=== PATIENT | female | born 1930 | race African-American/Black ===

== ENCOUNTER 2017-04-19 22:42 | Inpatient (IN) | payer MEDICARE, BC ==
[~2017-04-19] VITALS: Ht 160 cm; Wt 87.1 kg
[2017-04-19] MEDS ORDERED: dilTIAZem HCl 25mg/5ml Inj IVP ONE (23:30)
[2017-04-20] VITALS (9 sets, daily range): BP systolic 103–139; BP diastolic 53–83
[2017-04-20 00:08] LABS: MEAN CORPUSCULAR HEMOGLOBIN 29.7 PG (27.0-31.0); MEAN CORPUSCULAR HGB CONC 30.9 G/DL (32.0-36.0); MEAN CORPUSCULAR VOLUME 96 FL (80-99); MEAN PLATELET VOLUME 9.9 FL (6.5-10.1); PLATELET COUNT 261 K/UL (150-450); RED BLOOD COUNT 3.93 M/UL (4.20-5.40); RED CELL DISTRIBUTION WIDTH 14.6 % (11.6-14.8); WHITE BLOOD COUNT 10.5 K/UL (4.8-10.8)
[2017-04-20 00:27] LABS: APPEARANCE,URINE SLIGHTLY CLOUDY; KETONES,URINE 1+ (NEGATIVE); LEUKOCYTE ESTERASE ,URINE 1+ (NEGATIVE); NITRITE,URINE NEGATIVE (NEGATIVE); PH,URINE 5 (4.5-8.0); PROTEIN,URINE 3+ (NEGATIVE); UROBILINOGEN,URINE 4 MG/DL (0.0-1.0)
[2017-04-20 00:31] LABS: ANION GAP 16 mmol/L (5-15); CALCIUM 9.5 MG/DL (8.5-10.1); CARBON DIOXIDE 24 MMOL/L (21-32); CHLORIDE 102 MMOL/L (98-107); CREATININE 2.1 MG/DL (0.55-1.30); POTASSIUM 4.3 MMOL/L (3.5-5.1); SODIUM 141 MMOL/L (136-145)
[2017-04-20 00:37] LABS: BAND NEUTROPHILS % (MANUAL) 0 % (0-8); BASOPHILS % (MANUAL) 0 % (0-2); EOSINOPHILS % (MANUAL) 0 % (0-3); LYMPHOCYTES % (MANUAL) 5 % (20-45); NEUTROPHILS % (MANUAL) 87 % (45-75); PLATELET ESTIMATE ADEQUATE; PLATELET MORPHOLOGY NORMAL; TOTAL CELLS COUNTED 100
[2017-04-20 00:42] LABS: AMORPHOUS SEDIMENT,UR MODERATE /LPF; BACTERIA,URINE OCCASIONAL /HPF; ICTOTEST NEGATIVE; RBC,URINE 0-2 /HPF (0 - 2); SQUAMOUS EPITHELIAL CELL,UR OCCASIONAL /LPF (NONE/OCC)
[2017-04-20] MEDS ORDERED: dilTIAZem HCl 25mg/5ml Inj IVP ONE ×4 (00:45→05:00)
[2017-04-20 00:46] LABS: ALANINE AMINOTRANSFERASE 36 U/L (12-78); ALBUMIN/GLOBULIN RATIO 0.7 (1.0-2.7); ASPARTATE AMINO TRANSFERASE 39 U/L (15-37); TOTAL PROTEIN 8.7 G/DL (6.4-8.2)
[2017-04-20 00:49] LABS: BILIRUBIN,DIRECT 1.2 MG/DL (0.0-0.3)
[2017-04-20] MEDS ORDERED: dilTIAZem HCl 50mg/10ml Inj IVP ONE (00:53)
[2017-04-20 00:59] LABS: INR 1.8 (0.9-1.1)
--- NOTE | 2017-04-20 01:27 | Emergency Room Report ---
History of Present Illness General Chief Complaint: General Complaint Source: Patient, Family Member Present Illness HPI This is an 86-year-old female with a history of atrial fibrillation on Elliquis. She also has a history of CHF on Lasix. She presents with joint weakness and palpitation. Patient was a poor historian. History is through the assisted note. History also from family member when they came in. Patient complaining of generalize weakness. No chest pain. Thought that she may have a panic attack as when her heart rate was fast. Denies any other complaint. Allergies: Coded Allergies: TRAMADOL (Verified Allergy, Unknown, 04/19/17) Patient History Past Medical History: see triage record, old chart reviewed Pertinent Family History: none Social History: Denies: smoking Last Menstrual Period: none Now: No Immunizations: other Reviewed Nursing Documentation: PMH: Agreed, PSxH: Agreed Nursing Documentation-PMH Hx Cardiac Problems: No - CHF Hx Hypertension: Yes Hx Diabetes: Yes Review of Systems Constitutional: Reports: weakness Eye: Denies: eye pain, blurred vision ENT: Denies: ear pain, nose congestion, throat swelling Respiratory: Denies: cough, shortness of breath Cardiovascular: Reports: palpitations, Denies: chest pain Gastrointestinal: Denies: abdominal pain, diarrhea, nausea, vomiting Musculoskeletal: Denies: back pain, joint pain Skin: Denies: rash Neurological: Denies: headache, numbness Endocrine: Denies: increased thirst, increased urine Hematologic/Lymphatic: Denies: easy bruising All Other Systems: negative except mentioned in HPI Physical Exam Vital Signs Date Time Temp Pulse Resp B/P (MAP) Pulse Ox O2 Delivery O2 Flow Rate FiO2 04/19/17 22:36 97.9 132 15 176/103 98 Nasal Cannula 2.0 vitals with high blood pressure Sp02 EP Interpretation: reviewed, normal General Appearance: well appearing, no apparent distress, alert Head: normocephalic, atraumatic Eyes: bilateral eye PERRL, bilateral eye EOMI ENT: hearing grossly normal, normal pharynx Neck: full range of motion, supple, no meningismus Respiratory: chest non-tender, lungs clear, normal breath sounds Cardiovascular #1: no murmur, tachycardia, irregularly irregular Gastrointestinal: normal bowel sounds, non tender, no mass, no organomegaly, no bruit, non-distended Musculoskeletal: back normal, gait/station normal, normal range of motion Psychiatric: mood/affect normal Skin: warm/dry Procedures Critical Care Time Critical Care Time Critical care is mandated in this patient who presented with chf from rapid afib. Patient require my urgent intervention to attenuate the risks of metabolic collapse which may lead to cardiovascular collapse and . Critical care time is 35 minutes excluding any reportable procedure. Critical care time included evaluation, multiple reevaluation, looking at old charts, interpreting laboratory and diagnostic data, discussing case with patient and family and consultants, and charting. Medical Decision Making Diagnostic Impression: Primary Impression: Rapid atrial fibrillation Additional Impressions: ARF (acute renal failure) Qualified Codes: N17.9 - Acute kidney failure, unspecified CHF exacerbation Qualified Codes: I50.9 - Heart failure, unspecified Proteinuria Qualified Codes: R80.9 - Proteinuria, unspecified ER Course Patient with rapid A. fib. This may have caused her in CHF exacerbation. Creatinine is elevated. Per Dr. Mathew, there was concern about possible C. difficile she she's been having diarrhea. Heart rate improved after Cardizem. Lasix given. Troponin is slightly elevated. This may be secondary to the man ischemia from tachycardia. No aspirin given because she's on Elliquis. Laboratory Tests Test 04/19/17 23:55 04/20/17 00:05 White Blood Count 10.5 K/UL (4.8-10.8) Red Blood Count 3.93 M/UL (4.20-5.40) L Hemoglobin 11.7 G/DL (12.0-16.0) L Hematocrit 37.8 % (37.0-47.0) Mean Corpuscular Volume 96 FL (80-99) Mean Corpuscular Hemoglobin 29.7 PG (27.0-31.0) Mean Corpuscular Hemoglobin Concent 30.9 G/DL (32.0-36.0) L Red Cell Distribution Width 14.6 % (11.6-14.8) Platelet Count 261 K/UL (150-450) Mean Platelet Volume 9.9 FL (6.5-10.1) Neutrophils (%) (Auto) % (45.0-75.0) Lymphocytes (%) (Auto) % (20.0-45.0) Monocytes (%) (Auto) % (1.0-10.0) Eosinophils (%) (Auto) % (0.0-3.0) Basophils (%) (Auto) % (0.0-2.0) Differential Total Cells Counted 100 Neutrophils % (Manual) 87 % (45-75) H Lymphocytes % (Manual) 5 % (20-45) L Monocytes % (Manual) 8 % (1-10) Eosinophils % (Manual) 0 % (0-3) Basophils % (Manual) 0 % (0-2) Band Neutrophils 0 % (0-8) Platelet Estimate Adequate Platelet Morphology Normal Prothrombin Time 19.0 SEC (9.30-11.50) H Prothromb Time International Ratio 1.8 (0.9-1.1) H Activated Partial Thromboplast Time 32 SEC (23-33) Sodium Level 141 MMOL/L (136-145) Potassium Level 4.3 MMOL/L (3.5-5.1) Chloride Level 102 MMOL/L (98-107) Carbon Dioxide Level 24 MMOL/L (21-32) Anion Gap 16 mmol/L (5-15) H Blood Urea Nitrogen 34 mg/dL (7-18) H Creatinine 2.1 MG/DL (0.55-1.30) H Estimat Glomerular Filtration Rate mL/min (>60) Glucose Level 144 MG/DL (74-106) H Calcium Level 9.5 MG/DL (8.5-10.1) Total Bilirubin 1.7 MG/DL (0.2-1.0) H Direct Bilirubin 1.2 MG/DL (0.0-0.3) H Aspartate Amino Transf (AST/SGOT) 39 U/L (15-37) H Alanine Aminotransferase (ALT/SGPT) 36 U/L (12-78) Alkaline Phosphatase 87 U/L (46-116) Total Creatine Kinase 58 U/L (26-308) Creatine Kinase MB 2.0 NG/ML (0.0-3.6) Creatine Kinase MB Relative Index 3.4 Troponin I 0.063 ng/mL (0.000-0.056) Pro-B-Type Natriuretic Peptide 25091 pg/mL (0-125) H Total Protein 8.7 G/DL (6.4-8.2) H Albumin 3.7 G/DL (3.4-5.0) Globulin 5.0 g/dL Albumin/Globulin Ratio 0.7 (1.0-2.7) L Urine Color [place] Urine Appearance Slightly cloudy Urine pH 5 (4.5-8.0) Urine Specific [place] 1.020 (1.005-1.035) Urine Protein 3+ (NEGATIVE) H Urine Glucose (UA) Negative (NEGATIVE) Urine Ketones 1+ (NEGATIVE) H Urine Occult Blood Negative (NEGATIVE) Urine Nitrite Negative (NEGATIVE) Urine Bilirubin 1+ (NEGATIVE) H Urine Ictotest Negative Urine Urobilinogen 4 MG/DL (0.0-1.0) H Urine Leukocyte Esterase 1+ (NEGATIVE) H Urine RBC 0-2 /HPF (0 - 2) Urine WBC 2-4 /HPF (0 - 2) Urine Squamous Epithelial Cells Occasional /LPF Urine Amorphous Sediment Moderate /LPF (NONE) H Urine Bacteria Occasional /HPF (NONE) Lab Results Impression labs with elevated troponin And BNP. EKG Diagnostic Results Rate: tachycardiac Rhythm: other - Rapid A. fib ST Segments: other - Nonspecific ST changes Rhythm Strip Diag. Results Rhythm Strip Time: 01:26 EP Interpretation: yes Rate: 100 Rhythm: no PVC's, no ectopy, other - A. fib Chest X-Ray Diagnostic Results Chest X-Ray Diagnostic Results : Chest X-Ray Ordered: Yes # of Views/Limited/Complete: 1 View Indication: Shortness of Breath EP Interpretation: Yes Interpretation: no consolidation, no effusion, no pneumothorax, other - Cardiomegaly Impression: No acute disease Electronically Signed by: Chiki Rice MD Last Vital Signs Date Time Temp Pulse Resp B/P (MAP) Pulse Ox O2 Delivery O2 Flow Rate FiO2 04/20/17 00:58 134 110/77 04/20/17 00:21 97.9 19 100 Nasal Cannula 2.0 Status: improved Disposition: ADMITTED INPATIENT Condition: Serious Referrals: HORACE MATHEW (PCP) CHIKI RICE M.D. Apr 20, 2017 01:27
[2017-04-20] MEDS ORDERED: ELIQUIS5 MG PO (01:33)
[2017-04-20] MEDS ORDERED: METFORMIN HCL500 M1 ORAL (01:33)
[2017-04-20] MEDS ORDERED: CARDIZEM CD120 MG ORAL (01:33)
[2017-04-20] MEDS ORDERED: FUROSEMIDE40 MG ORAL (01:34)
[2017-04-20] MEDS ORDERED: VENTOLIN HFA18 GM INH (01:42)
[2017-04-20] MEDS ORDERED: dilTIAZem HCl 60mg tab ORAL ONE (05:00)
[2017-04-20] MEDS ORDERED: dilTIAZem HCl 30mg tab ORAL ONE (05:00)
[2017-04-20 10:13] LABS: BASOPHILS % (AUTO) 0.7 % (0.0-2.0); EOSINOPHILS % (AUTO) 0.1 % (0.0-3.0); LYMPHOCYTES % (AUTO) 9.9 % (20.0-45.0); MEAN CORPUSCULAR HEMOGLOBIN 29.3 PG (27.0-31.0); MEAN CORPUSCULAR HGB CONC 30.6 G/DL (32.0-36.0); MEAN CORPUSCULAR VOLUME 96 FL (80-99); MEAN PLATELET VOLUME 8.5 FL (6.5-10.1); MONOCYTES % (AUTO) 9.8 % (1.0-10.0); NEUTROPHILS % (AUTO) 79.4 % (45.0-75.0); PLATELET COUNT 224 K/UL (150-450); RED BLOOD COUNT 3.71 M/UL (4.20-5.40); RED CELL DISTRIBUTION WIDTH 14.8 % (11.6-14.8); WHITE BLOOD COUNT 8.5 K/UL (4.8-10.8)
[2017-04-20 10:27] LABS: ANION GAP 13 mmol/L (5-15); CALCIUM 9.4 MG/DL (8.5-10.1); CARBON DIOXIDE 25 MMOL/L (21-32); CHLORIDE 104 MMOL/L (98-107); CREATININE 2.2 MG/DL (0.55-1.30); POTASSIUM 4.8 MMOL/L (3.5-5.1); SODIUM 142 MMOL/L (136-145)
[2017-04-20] MEDS ORDERED: Digoxin 0.5mg/2ml Inj IVP ONE ×2 (12:45→23:00)
[2017-04-20] MEDS ORDERED: Metoprolol 5mg/5ml Inj IVPB ONE (13:00)
--- NOTE | 2017-04-20 13:03 | Geriatric Progress Note ---
Subjective Interval Events ?HP dicated impression acute renal failure abdomen pain r/o ce diff acute congestine heart faiklure diasltolic heart failure monirtor closely Geriatric Geriatric Last 24 Hour Vital Signs Date Time Temp Pulse Resp B/P (MAP) Pulse Ox O2 Delivery O2 Flow Rate FiO2 04/20/17 08:07 120 20 101/70 98 Nasal Cannula 2.0 04/20/17 06:48 97.9 92 22 109/53 100 Nasal Cannula 2.0 04/20/17 05:39 137 116/74 04/20/17 05:38 137 116/74 04/20/17 04:45 97.9 137 22 103/78 100 Nasal Cannula 2.0 04/20/17 03:37 97.9 130 28 130/83 100 Nasal Cannula 2.0 04/20/17 02:21 133 118/84 04/20/17 00:58 134 110/77 04/20/17 00:36 133 114/69 04/20/17 00:21 97.9 133 19 114/69 100 Nasal Cannula 2.0 04/19/17 23:55 134 106/84 04/19/17 22:36 97.9 132 15 176/103 98 Nasal Cannula 2.0 Laboratory Tests Test 04/19/17 23:55 04/20/17 00:05 04/20/17 09:15 White Blood Count 10.5 K/UL (4.8-10.8) 8.5 K/UL (4.8-10.8) Red Blood Count 3.93 M/UL (4.20-5.40) L 3.71 M/UL (4.20-5.40) L Hemoglobin 11.7 G/DL (12.0-16.0) L 10.9 G/DL (12.0-16.0) L Hematocrit 37.8 % (37.0-47.0) 35.5 % (37.0-47.0) L Mean Corpuscular Volume 96 FL (80-99) 96 FL (80-99) Mean Corpuscular Hemoglobin 29.7 PG (27.0-31.0) 29.3 PG (27.0-31.0) Mean Corpuscular Hemoglobin Concent 30.9 G/DL (32.0-36.0) L 30.6 G/DL (32.0-36.0) L Red Cell Distribution Width 14.6 % (11.6-14.8) 14.8 % (11.6-14.8) Platelet Count 261 K/UL (150-450) 224 K/UL (150-450) Mean Platelet Volume 9.9 FL (6.5-10.1) 8.5 FL (6.5-10.1) Neutrophils (%) (Auto) % (45.0-75.0) 79.4 % (45.0-75.0) H Lymphocytes (%) (Auto) % (20.0-45.0) 9.9 % (20.0-45.0) L Monocytes (%) (Auto) % (1.0-10.0) 9.8 % (1.0-10.0) Eosinophils (%) (Auto) % (0.0-3.0) 0.1 % (0.0-3.0) Basophils (%) (Auto) % (0.0-2.0) 0.7 % (0.0-2.0) Differential Total Cells Counted 100 Neutrophils % (Manual) 87 % (45-75) H Lymphocytes % (Manual) 5 % (20-45) L Monocytes % (Manual) 8 % (1-10) Eosinophils % (Manual) 0 % (0-3) Basophils % (Manual) 0 % (0-2) Band Neutrophils 0 % (0-8) Platelet Estimate Adequate Platelet Morphology Normal Prothrombin Time 19.0 SEC (9.30-11.50) H Prothromb Time International Ratio 1.8 (0.9-1.1) H Activated Partial Thromboplast Time 32 SEC (23-33) Sodium Level 141 MMOL/L (136-145) 142 MMOL/L (136-145) Potassium Level 4.3 MMOL/L (3.5-5.1) 4.8 MMOL/L (3.5-5.1) Chloride Level 102 MMOL/L (98-107) 104 MMOL/L (98-107) Carbon Dioxide Level 24 MMOL/L (21-32) 25 MMOL/L (21-32) Anion Gap 16 mmol/L (5-15) H 13 mmol/L (5-15) Blood Urea Nitrogen 34 mg/dL (7-18) H 38 mg/dL (7-18) H Creatinine 2.1 MG/DL (0.55-1.30) H 2.2 MG/DL (0.55-1.30) H Estimat Glomerular Filtration Rate mL/min (>60) mL/min (>60) Glucose Level 144 MG/DL (74-106) H 137 MG/DL (74-106) H Calcium Level 9.5 MG/DL (8.5-10.1) 9.4 MG/DL (8.5-10.1) Total Bilirubin 1.7 MG/DL (0.2-1.0) H Direct Bilirubin 1.2 MG/DL (0.0-0.3) H Aspartate Amino Transf (AST/SGOT) 39 U/L (15-37) H Alanine Aminotransferase (ALT/SGPT) 36 U/L (12-78) Alkaline Phosphatase 87 U/L (46-116) Total Creatine Kinase 58 U/L (26-308) Creatine Kinase MB 2.0 NG/ML (0.0-3.6) Creatine Kinase MB Relative Index 3.4 Troponin I 0.063 ng/mL (0.000-0.056) Pro-B-Type Natriuretic Peptide 42607 pg/mL (0-125) H Total Protein 8.7 G/DL (6.4-8.2) H Albumin 3.7 G/DL (3.4-5.0) Globulin 5.0 g/dL Albumin/Globulin Ratio 0.7 (1.0-2.7) L Urine Color [place] Urine Appearance Slightly cloudy Urine pH 5 (4.5-8.0) Urine Specific [place] 1.020 (1.005-1.035) Urine Protein 3+ (NEGATIVE) H Urine Glucose (UA) Negative (NEGATIVE) Urine Ketones 1+ (NEGATIVE) H Urine Occult Blood Negative (NEGATIVE) Urine Nitrite Negative (NEGATIVE) Urine Bilirubin 1+ (NEGATIVE) H Urine Ictotest Negative Urine Urobilinogen 4 MG/DL (0.0-1.0) H Urine Leukocyte Esterase 1+ (NEGATIVE) H Urine RBC 0-2 /HPF (0 - 2) Urine WBC 2-4 /HPF (0 - 2) Urine Squamous Epithelial Cells Occasional /LPF Urine Amorphous Sediment Moderate /LPF (NONE) H Urine Bacteria Occasional /HPF (NONE) Current Medications Medications (Trade) Dose Ordered Sig/Edda Route PRN Reason Start Time Stop Time Status Last Admin Dose Admin Diltiazem HCl (Cardizem) 120 mg TID ORAL 04/20/17 13:00 05/20/17 12:59 Metoprolol Tartrate 5 mg/ Dextrose 60 ml @ 120 mls/hr ONCE ONCE IVP 04/20/17 13:15 04/20/17 13:44 Sodium Chloride 1,000 ml @ 40 mls/hr Q24H IV 04/20/17 10:00 05/20/17 09:59 04/20/17 12:03 Height (Feet): 5 Height (Inches): 3.00 Weight (Pounds): 192 HORACE FONTAINE Apr 20, 2017 13:03
[2017-04-20] MEDS: dilTIAZem HCl 60mg tab ORAL SCH ×2 (13:05→18:34)
--- NOTE | 2017-04-20 13:14 | Diagnostic Imaging Report ---
Indication: Shortness of breath Technique: XRAY Chest 1v Comparison: None Findings: Heart is enlarged. Mediastinal contours are sharp. There is central pulmonary vascular congestion. There is patchy retrocardiac atelectasis/consolidation. Small left pleural effusion is not excluded. No pneumothorax. No acute osseous abnormality seen. Impression: Cardiomegaly and mild pulmonary vascular congestion. Patchy retrocardiac atelectasis/consolidation. Small left pleural effusion not entirely excluded.
[2017-04-20] MEDS ORDERED: Metoprolol Tartrate 5 MG in D5W 55 ML IVP ONE (13:15)
[2017-04-20] MEDS ORDERED: Norco 5mg/325mg tab ORAL PRN (14:00)
--- NOTE | 2017-04-20 14:29 | Consultation ---
Consult Note Assessment/Plan Renal consult dictated # [id number] VLADIMIR BHATIA Apr 20, 2017 14:29
[2017-04-20] MEDS ORDERED: Milk of Magnesia 30ml Ud ORAL PRN (16:00)
[2017-04-20] MEDS ORDERED: ceFAZolin 1gm/50ml Premix 50 ML IV ONE (16:00)
[2017-04-20] MEDS ORDERED: Lomotil 2.5mg tab ORAL PRN (18:00)
[2017-04-20] MEDS ORDERED: Qvar 40mcg Inhaler 6.8 gm INH SCH (18:00)
[2017-04-20] MEDS ORDERED: Eliquis 2.5mg tablet ORAL SCH (18:00)
[2017-04-20] MEDS ORDERED: metFORMIN 500mg tab ORAL SCH (18:00)
[2017-04-20] MEDS: Lactobacillus-GG tablet ORAL SCH (18:33)
[2017-04-20] MEDS: Docusate 100mg cap ORAL SCH (18:33)
--- NOTE | 2017-04-20 20:11 | Cardiology Progress Note ---
Assessment/Plan Assessment/Plan The patient is seen and examined, full consult note is dictated. Objective Last 24 Hour Vital Signs Date Time Temp Pulse Resp B/P (MAP) Pulse Ox O2 Delivery O2 Flow Rate FiO2 04/20/17 19:35 Nasal Cannula 2.0 28 04/20/17 19:35 97 Nasal Cannula 2.0 28 04/20/17 19:35 61 24 98 Nasal Cannula 2.0 28 04/20/17 19:35 67 24 97 Nasal Cannula 2.0 28 04/20/17 18:34 88 117/52 04/20/17 16:00 96.8 64 18 105/64 100 Nasal Cannula 2.0 04/20/17 13:33 145 117/78 04/20/17 13:06 145 04/20/17 13:05 145 117/78 04/20/17 12:00 136 04/20/17 12:00 96.8 145 18 117/78 100 Nasal Cannula 2.0 04/20/17 08:07 120 20 101/70 98 Nasal Cannula 2.0 04/20/17 08:00 105 04/20/17 08:00 97.0 50 18 116/70 100 Nasal Cannula 2.0 04/20/17 06:48 97.9 92 22 109/53 100 Nasal Cannula 2.0 04/20/17 05:39 137 116/74 04/20/17 05:38 137 116/74 04/20/17 04:45 97.9 137 22 103/78 100 Nasal Cannula 2.0 04/20/17 03:37 97.9 130 28 130/83 100 Nasal Cannula 2.0 04/20/17 02:21 133 118/84 04/20/17 00:58 134 110/77 04/20/17 00:36 133 114/69 04/20/17 00:21 97.9 133 19 114/69 100 Nasal Cannula 2.0 04/19/17 23:55 134 106/84 04/19/17 22:36 97.9 132 15 176/103 98 Nasal Cannula 2.0 Intake and Output 04/20/17 04/21/17 19:00 07:00 Output Total 100 ml Balance -100 ml Output Urine Total 100 ml Laboratory Tests Test 04/19/17 23:55 04/20/17 00:05 04/20/17 09:15 White Blood Count 10.5 K/UL (4.8-10.8) 8.5 K/UL (4.8-10.8) Red Blood Count 3.93 M/UL (4.20-5.40) L 3.71 M/UL (4.20-5.40) L Hemoglobin 11.7 G/DL (12.0-16.0) L 10.9 G/DL (12.0-16.0) L Hematocrit 37.8 % (37.0-47.0) 35.5 % (37.0-47.0) L Mean Corpuscular Volume 96 FL (80-99) 96 FL (80-99) Mean Corpuscular Hemoglobin 29.7 PG (27.0-31.0) 29.3 PG (27.0-31.0) Mean Corpuscular Hemoglobin Concent 30.9 G/DL (32.0-36.0) L 30.6 G/DL (32.0-36.0) L Red Cell Distribution Width 14.6 % (11.6-14.8) 14.8 % (11.6-14.8) Platelet Count 261 K/UL (150-450) 224 K/UL (150-450) Mean Platelet Volume 9.9 FL (6.5-10.1) 8.5 FL (6.5-10.1) Neutrophils (%) (Auto) % (45.0-75.0) 79.4 % (45.0-75.0) H Lymphocytes (%) (Auto) % (20.0-45.0) 9.9 % (20.0-45.0) L Monocytes (%) (Auto) % (1.0-10.0) 9.8 % (1.0-10.0) Eosinophils (%) (Auto) % (0.0-3.0) 0.1 % (0.0-3.0) Basophils (%) (Auto) % (0.0-2.0) 0.7 % (0.0-2.0) Differential Total Cells Counted 100 Neutrophils % (Manual) 87 % (45-75) H Lymphocytes % (Manual) 5 % (20-45) L Monocytes % (Manual) 8 % (1-10) Eosinophils % (Manual) 0 % (0-3) Basophils % (Manual) 0 % (0-2) Band Neutrophils 0 % (0-8) Platelet Estimate Adequate Platelet Morphology Normal Prothrombin Time 19.0 SEC (9.30-11.50) H Prothromb Time International Ratio 1.8 (0.9-1.1) H Activated Partial Thromboplast Time 32 SEC (23-33) Sodium Level 141 MMOL/L (136-145) 142 MMOL/L (136-145) Potassium Level 4.3 MMOL/L (3.5-5.1) 4.8 MMOL/L (3.5-5.1) Chloride Level 102 MMOL/L (98-107) 104 MMOL/L (98-107) Carbon Dioxide Level 24 MMOL/L (21-32) 25 MMOL/L (21-32) Anion Gap 16 mmol/L (5-15) H 13 mmol/L (5-15) Blood Urea Nitrogen 34 mg/dL (7-18) H 38 mg/dL (7-18) H Creatinine 2.1 MG/DL (0.55-1.30) H 2.2 MG/DL (0.55-1.30) H Estimat Glomerular Filtration Rate mL/min (>60) mL/min (>60) Glucose Level 144 MG/DL (74-106) H 137 MG/DL (74-106) H Calcium Level 9.5 MG/DL (8.5-10.1) 9.4 MG/DL (8.5-10.1) Total Bilirubin 1.7 MG/DL (0.2-1.0) H Direct Bilirubin 1.2 MG/DL (0.0-0.3) H Aspartate Amino Transf (AST/SGOT) 39 U/L (15-37) H Alanine Aminotransferase (ALT/SGPT) 36 U/L (12-78) Alkaline Phosphatase 87 U/L (46-116) Total Creatine Kinase 58 U/L (26-308) Creatine Kinase MB 2.0 NG/ML (0.0-3.6) Creatine Kinase MB Relative Index 3.4 Troponin I 0.063 ng/mL (0.000-0.056) Pro-B-Type Natriuretic Peptide 51734 pg/mL (0-125) H Total Protein 8.7 G/DL (6.4-8.2) H Albumin 3.7 G/DL (3.4-5.0) Globulin 5.0 g/dL Albumin/Globulin Ratio 0.7 (1.0-2.7) L Urine Color [place] Urine Appearance Slightly cloudy Urine pH 5 (4.5-8.0) Urine Specific [place] 1.020 (1.005-1.035) Urine Protein 3+ (NEGATIVE) H Urine Glucose (UA) Negative (NEGATIVE) Urine Ketones 1+ (NEGATIVE) H Urine Occult Blood Negative (NEGATIVE) Urine Nitrite Negative (NEGATIVE) Urine Bilirubin 1+ (NEGATIVE) H Urine Ictotest Negative Urine Urobilinogen 4 MG/DL (0.0-1.0) H Urine Leukocyte Esterase 1+ (NEGATIVE) H Urine RBC 0-2 /HPF (0 - 2) Urine WBC 2-4 /HPF (0 - 2) Urine Squamous Epithelial Cells Occasional /LPF Urine Amorphous Sediment Moderate /LPF (NONE) H Urine Bacteria Occasional /HPF (NONE) MAGALIS AVALOS Apr 20, 2017 20:11
[2017-04-20] MEDS: Sennosides 8.6mg ORAL SCH (21:12)
[2017-04-20] MEDS: Solu-MEDROL 40mg Inj IVP SCH (21:13)
[2017-04-20] MEDS: Levemir Flexpen SUBQ SCH (21:17)
--- NOTE | 2017-04-20 22:00 | Consultation ---
DATE OF CONSULTATION: 04/20/2017 INFECTIOUS DISEASES CONSULTATION CONSULTING PHYSICIAN: Alexsander Parada M.D. PRIMARY ATTENDING: Bryan Mathew M.D. REASON FOR CONSULT: Chronic infection of right knee prothesis. HISTORY OF PRESENT ILLNESS: This 86-year-old female admitted today from a care home facility. The patient is complaining of weakness. Has tachycardia. The patient has a history of C. difficile colitis. Has history of atrial fibrillation, has a heart rate up to 137. She is also taking chronic antibiotic treatment for right knee prosthetic joint infection. The patient has already 6 weeks of IV antibiotics. Currently on p.o. rifampin and cefadroxil. She had diarrhea that at the time of examination is resolved. PAST MEDICAL HISTORY: Significant for diabetes mellitus, COPD, obstructive sleep apnea, hyperlipidemia, and atrial fibrillation. PAST SURGICAL HISTORY: Bilateral hip replacement, right knee replacement, right knee was tapped as an outpatient, but the prosthesis was not removed. MEDICATIONS: Getting diltiazem, metoprolol, sodium chloride and as mentioned getting rifampin and cefadroxil. ALLERGIES: Allergic to tramadol. SOCIAL HISTORY: . No history of alcohol, drug abuse, or smoking. REVIEW OF SYSTEMS: No fever. No chills. No palpitation. No chest pain. Has occasional coughing. No nausea. No vomiting. Has deep diarrhea that currently is better. Has frequent urination that is attributed to taking Lasix. PHYSICAL EXAMINATION: VITAL SIGNS: Pulse is 120, temperature 97.9, and blood pressure is 101/70. GENERAL APPEARANCE: She is well developed. HEAD AND NECK: [place] conjunctivae. HEART: Tachycardic and irregular. LUNGS: Clear. ABDOMEN: Obese and soft. EXTREMITIES: Trace edema of the legs bilaterally. She has chronic skin changes in the legs. LABORATORY DATA: Sodium 142, potassium 4.8, chloride 104, bicarbonate 25, BUN 38, creatinine 2.2, and glucose is 137. Bilirubin was 1.7. Troponin was elevated at 0.063. BNP was elevated at 17,726. WBC 8.5, hemoglobin 10.9, hematocrit 35.5, and platelets 224. UA showed WBC of 0 to 2. IMPRESSION: 1. 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 2. Diarrhea. We would want to rule out Clostridium difficile. 3. Atrial fibrillation. 4. Diabetes mellitus type 2. 5. Obstructive sleep apnea. 6. Acute renal failure. RECOMMENDATION: We will continue with current p.o. antibiotic rifampin and cefadroxil. We will try to obtain more information from [facility] for duration of antibiotic. We will follow up the labs and cultures. At the end of my exam, I thank Dr. Mathew for involving me in the care of this patient. Alexsander Parada M.D. DR: RADHA JOB#: [id number] CC: GUEVARA
--- NOTE | 2017-04-20 23:15 | Consultation ---
DATE OF CONSULTATION: NEPHROLOGY CONSULTATION CONSULTING PHYSICIAN: Roderick Parada M.D. REFERRING PHYSICIAN: Bryan Mathew M.D. REASON FOR CONSULTATION: Renal failure. HISTORY OF PRESENT ILLNESS: This is an 86-year-old somewhat poor historian, female, who was admitted with reported joint weakness and palpitation. However, the patient stated that she has been short of breath. I was asked to see her because of renal failure. Her BUN and creatinine are 38 and 2.2 as of today. Yesterday, the serum creatinine was 2.1. The patient has a history of CHF and was getting Lasix as an outpatient. She has also a history of atrial fibrillation and on Eliquis. PAST MEDICAL HISTORY: The patient has also history of diabetes and hypertension in addition to CHF and possibly chronic kidney disease. MEDICATIONS ON ADMISSION: Reviewed and reconciled in the EMR. ALLERGIES: Reported to tramadol. SOCIAL HISTORY: No history of smoking or alcohol abuse. REVIEW OF SYSTEMS: As above. PHYSICAL EXAMINATION: GENERAL: The patient is an elderly female, in no acute distress. VITAL SIGNS: Blood pressure is 117/78, pulse is 145, respiratory rate 20, and temperature 97.9. HEENT: [place] conjunctivae. Anicteric sclerae. NECK: Supple. LUNGS: Expiratory wheezing bilaterally. HEART: S1 and S2. ABDOMEN: Soft and nontender. EXTREMITIES: Pedal edema mostly on the left lower extremity. LABORATORY FINDINGS: UA shows 3+ protein. The chemistry panel shows serum sodium of 142, potassium 4.8, chloride 104, CO2 25, BUN is 38 and creatinine 2.2. CBC shows a WBC of 8.5, hematocrit is 35.5, hemoglobin is 10.9, and platelets 224,000. ASSESSMENT: This is an 86-year-old female, who is admitted with reported weakness, however, the patient tells me that she has been short of breath. Also, she has expiratory wheezing on her physical exam. She may indeed have congestive heart failure exacerbation. I was asked to see her for renal failure, I am assuming that most if not all of her renal failure is chronic. The patient has significant proteinuria, which goes along with chronic kidney disease likely as a result of diabetes and hypertension. Acute renal failure on top of chronic kidney disease could not be completely ruled out since I did not have any baseline for this patient, but one possibility is the patient has developed cardiorenal syndrome or less likely other causes such as obstruction. PLAN: Urine studies will be done as well as a renal ultrasound to work up renal failure. I would discontinue the intravenous fluid that the patient is getting and keep her on the diuretics. I would get an echocardiogram if it has not been done recently. A serum PTH level will be ordered to rule out secondary hyperparathyroidism. Also, a hemoglobin A1c will be ordered. Thank you very much Dr. Mathew for this consultation. Roderick Parada M.D. DR: OTONIEL JOB#: [id number] CC:
[2017-04-21 00:27] VITALS: BP 115/61
--- NOTE | 2017-04-21 01:45 | Consultation ---
DATE OF CONSULTATION: 04/20/2017 CARDIOLOGY CONSULTATION CONSULTING PHYSICIAN: Brian Savage M.D. REFERRING PHYSICIAN: Bryan Mathew M.D. This consultation is on behalf of Dr. Brian Campbell for whom I am covering. REASON FOR CONSULTATION: Management of dyspnea and atrial fibrillation. HISTORY OF PRESENT ILLNESS: The patient is a very pleasant 86-year-old female with a history of congestive heart failure and chronic atrial fibrillation on Eliquis, who presents to the hospital with complaints of generalized weakness as well as palpitation. On arrival to the emergency department, she had a blood pressure of 176/103 mmHg and heart rate was 132. A 12-lead electrocardiogram was significant for atrial fibrillation with rapid ventricular response. She was then admitted to telemetry for further evaluation and management of the above condition. At the time of my evaluation, the patient was in mild respiratory distress, awake and alert. She did not have any complaints of chest pain. PAST MEDICAL HISTORY: Include history of congestive heart failure, history of hypertension and history of diabetes mellitus. LIST OF MEDICATIONS: Include albuterol 2 puffs inhaler q.6 h., apixaban 5 mg p.o. twice daily, Cardizem 360 mg p.o. twice daily, furosemide 40 mg p.o. daily and metformin 500 mg twice daily. SOCIAL HISTORY: The patient denies any tobacco, alcohol, or illicit drug use. FAMILY HISTORY: No premature coronary artery disease or arrhythmogenic in the first-degree relatives. REVIEW OF SYSTEMS: HEENT: Denies any headache, diplopia, or blurred vision. CONSTITUTIONAL: Complains of generalized weakness, but no fever, chills, or night sweats. CARDIOVASCULAR: Did not have any complaints of chest pain but she had shortness of breath with less than ordinary activities. Denies any PND, orthopnea, or leg swelling. PHYSICAL EXAMINATION: VITAL SIGNS: Blood pressure was 176/103, respirations 16, pulse of 132, O2 saturation was 98% on nasal cannula, 2.0 flow rate and temperature 97.9 degrees Fahrenheit. GENERAL: The patient is a very unfortunate 86-year-old female, seen in Cardiology consultation at the request of Dr. Mathew. She is currently in mild respiratory distress, awake and alert. The patient shows wheezing. HEENT: Atraumatic and normocephalic. Anicteric. Pupils are equal, round, and reactive to light and accommodation. Extraocular muscles intact. NECK: JVP cannot be assessed, as she is lying down. CARDIOVASCULAR: Normal S1 and S2. Irregularly irregular rhythm. A 2/6 mid systolic murmur at the left sternal border. PMI is at fourth intercostal space in the midclavicular line. LUNGS: There is bilateral diffuse rhonchi. ABDOMEN: Soft, nontender, and nondistended. No hepatosplenomegaly. Positive bowel sounds. EXTREMITIES: No evidence of edema, clubbing, or cyanosis. LABORATORY AND DIAGNOSTIC FINDING: WBC was 10.5, hemoglobin was 11.7, hematocrit of 37.8%, and platelet counts 261. INR was 1.8. Sodium was 141, potassium is 4.3, chloride is 102, carbon dioxide is 24, BUN of 34, creatinine 2.1, glucose is 144 and calcium is 9.5. Chest x-ray from 04/19/2017 shows cardiomegaly with mild pulmonary vascular congestion, patchy retrocardiac atelectasis or consolidation, small left pleural effusion cannot be excluded. A 12-lead electrocardiogram shows atrial fibrillation with rapid ventricular response and nonspecific ST and T-wave changes. ASSESSMENT AND PLAN: The patient is a very unfortunate lady, who is seen in Cardiology consultation. 1. Most likely chronic atrial fibrillation. The patient will be continued on Eliquis. I would like to put a hold on Lasix temporarily as this might have caused hypovolemia and rebound tachycardia. Unfortunately, diastolic data cannot be assessed due to atrial fibrillation. The patient's 2D echocardiography shows normal left ventricular systolic function. 2. Slight elevation of troponin I level. This could be secondary to non-ST elevation myocardial infarction versus troponin leak due to end-stage renal disease. We will continue with serial troponin level. Currently, the patient is chest pain-free. 3. Respiratory distress with the physical examination significant for bilateral rhonchi. I would like to start the patient on Solu-Medrol intravenous 40 mg 3 times daily. Oxygen will also be given. Pulmonary consultation is recommended. I would like to thank, Dr. Mathew, for allowing me to participate in the care of this patient. rBian Savage M.D. DR: FINESSE JOB#: [id number] CC:
[2017-04-21] MEDS: ceFAZolin 0.5gm in D5W 55ml IV SCH ×2 (03:35→16:11)
[2017-04-21] MEDS: sitaGLIPtin 25mg tab ORAL SCH (05:16)
[2017-04-21] MEDS: Solu-MEDROL 40mg Inj IVP SCH ×3 (05:16→21:03)
[2017-04-21 08:00] VITALS: BP 125/68
--- NOTE | 2017-04-21 08:30 | History and Physical Report ---
DATE OF ADMISSION: 04/20/2017 HISTORY OF PRESENT ILLNESS: The patient is an unfortunate woman who has atrial flutter, history of hypertension, congestive heart failure, diastolic dysfunction, diabetes, hypertension, septic knee arthroplasty, who has been on IV antibiotics 6 to 8 weeks. She was placed on Cefdinir as well as Rifampin. She was admitted with acute congestive heart failure. ER called me. I asked them to do a CT of the abdomen. Since she had nausea and vomiting, the CT was not done. She was seen and evaluated in the emergency room and subsequently has been admitted. On admission, she is noted to be in acute renal failure with a creatinine of 2.1, previously 1.2. She also noted to have mild urinary tract infections. Urine culture will be obtained. PAST MEDICAL HISTORY: 1. Diabetes. 2. Morbid obesity. 3. . 4. Osteoarthritis of the knee. 5. History of total knee arthroplasty. 6. History of septic arthritis. 7. Anemia from chronic disease. 8. Chronic antibiotic use for septic knee. 9. Mild depression. 10. Diabetes. 11. Atrial flutter. SOCIAL HISTORY: Family in [facility], but she lives in a jail after the joint replacement, went home, could not take care of herself and came back to the jail. She does not smoke, abuse alcohol or drugs. FAMILY HISTORY: Positive for morbid obesity, hypertension, and diabetes. PHYSICAL EXAMINATION: HEENT: Extraocular muscles intact. LUNGS: The patient has bibasilar rhonchi. HEART: S1 and S2 tachy, but regular. ABDOMEN: Soft. Positive bowel sounds. EXTREMITIES: No clubbing or cyanosis. IMPRESSION: This is an unfortunate female who presents with atrial fibrillation and rapid ventricular rate. Metoprolol 5 mg IV push will be given. Cardizem 120 mg t.i.d. will be given to the patient. We will have frame stripper see the patient. Also, we will put on atenolol 50 mg twice a day. Cardiology consult and troponin will be obtained on the patient. The patient has had no p.o. intake for 4 days and she has had acute renal failure. IV fluid gentle will be given to the patient, although the patient is in diastolic heart failure. Monitor the patient closely. Oxygen supplement. Rule out for UT. Troponin will be serially taken. Cardiology consult will be obtained. As far as the septic knee, she is on antibiotic. She does have evidence of pyuria. Infectious Diseases consultation will be obtained. Case was discussed with the patient. Venous Doppler will be obtained. The patient is on Eliquis DVT prophylaxis. Thus, the patient is taking chronic Eliquis. ADMISSION DIAGNOSES: 1. Acute renal failure, likely from dehydration. 2. Atrial fibrillation, rapid ventricular. 3. Acute congestive heart failure superimposed on chronic congestive heart failure. 4. Hypertension. 5. Diabetes. 6. Morbid obesity. 7. Case was discussed with the patient. Bryan Mathew M.D. DR: Parker JOB#: [id number] CC:
[2017-04-21] MEDS: Docusate 100mg cap ORAL SCH ×2 (09:07→17:54)
[2017-04-21] MEDS: Eliquis 2.5mg tablet ORAL SCH ×2 (09:08→17:53)
[2017-04-21] MEDS: dilTIAZem HCl 60mg tab ORAL SCH ×3 (09:08→18:27)
[2017-04-21] MEDS: Lactobacillus-GG tablet ORAL SCH ×2 (09:09→17:54)
--- NOTE | 2017-04-21 09:09 | Diagnostic Imaging Report ---
Indication: Abdominal pain Technique: Continuous helical transaxial imaging of the abdomen and pelvis was obtained from the lung bases to the pubic symphysis. No intravenous contrast was administered. Coronal 2-D reformats were also obtained. Automatic Exposure Control was utilized. Total Dose length Product (DLP): 1061.[address] Dose Index Volume (CTDIvol): 19.07 mGy Comparison: none Findings: Small right pleural effusion and trace left pleural effusion demonstrated with posterior basilar atelectasis associated with this. Cardiomegaly is present. Coronary calcifications are noted. Small hiatal hernia is present. The liver is heterogeneous and hypodense consistent with fatty infiltration. Cholecystectomy noted. Diverticula noted throughout the colon. Motion artifact limiting evaluation. Generalized subcutaneous edema noted. No evidence of bowel obstruction. Pelvic structures limited visualization due to bilateral hip prostheses. Ordaz catheter noted and partially seen on this examination. Moderate retention of fecal material within the rectal vault noted. Appendix not identified. There is narrowing of intervertebral discs and accompanying endplate osteophyte formation. Hypertrophied facet joints also demonstrated. IMPRESSION: [id number] right pleural effusion and trace left pleural effusion Atherosclerotic vascular disease. Fatty liver Diverticulosis of the colon. No definite diverticulitis. Advanced degenerative disease of the spine. [facility] has communicated the preliminary results to the Emergency Department. Their findings are largely concordant with this report. The CT scanner at [facility] is accredited by the [employer] and the scans are performed using dose optimization techniques as appropriate to a performed exam including Automatic Exposure control.
[2017-04-21] MEDS: Furosemide 40mg tab ORAL SCH (09:10)
[2017-04-21 09:16] LABS: MEAN CORPUSCULAR HEMOGLOBIN 29.3 PG (27.0-31.0); MEAN CORPUSCULAR HGB CONC 30.6 G/DL (32.0-36.0); MEAN CORPUSCULAR VOLUME 96 FL (80-99); MEAN PLATELET VOLUME 8.4 FL (6.5-10.1); PLATELET COUNT 219 K/UL (150-450); RED CELL DISTRIBUTION WIDTH 14.9 % (11.6-14.8)
[2017-04-21 09:18] LABS: ALANINE AMINOTRANSFERASE 35 U/L (12-78); ALBUMIN/GLOBULIN RATIO 0.7 (1.0-2.7); ANION GAP 12 mmol/L (5-15); ASPARTATE AMINO TRANSFERASE 37 U/L (15-37); CALCIUM 9.4 MG/DL (8.5-10.1); CARBON DIOXIDE 26 MMOL/L (21-32); CHLORIDE 100 MMOL/L (98-107); CREATININE 2.2 MG/DL (0.55-1.30); SODIUM 138 MMOL/L (136-145); THYROID STIMULATING HORMONE 3.953 uiU/mL (0.358-3.740); TOTAL PROTEIN 8.2 G/DL (6.4-8.2)
[2017-04-21] MEDS: Levemir Flexpen SUBQ SCH ×2 (09:21→21:05)
[2017-04-21 09:37] LABS: BILIRUBIN,DIRECT 1.2 MG/DL (0.0-0.3)
[2017-04-21 09:48] LABS: HEMOGLOBIN A1C 6.6 % (4.3-6.0)
[2017-04-21 10:49] LABS: ANISOCYTOSIS 1+; BAND NEUTROPHILS % (MANUAL) 0 % (0-8); BASOPHILS % (MANUAL) 0 % (0-2); EOSINOPHILS % (MANUAL) 1 % (0-3); HYPOCHROMASIA 1+; LYMPHOCYTES % (MANUAL) 8 % (20-45); NEUTROPHILS % (MANUAL) 90 % (45-75); PLATELET ESTIMATE ADEQUATE; PLATELET MORPHOLOGY NORMAL; TOTAL CELLS COUNTED 100
--- NOTE | 2017-04-21 12:07 | GI Initial Consult Note ---
Justina Rice NArmandPArmand 04/21/17 1207: History of Present Illness General Date patient seen: Apr 21, 2017 Time patient seen: 12:01 Reason for Hospitalization: General Complaint Referring physician: HORACE FONTAINE Reason for Consultation: N/V Present Illness HPI This is an 86-year-old female with a history of atrial fibrillation on Eliquis. She also has a history of CHF on Lasix. She presents with joint weakness and palpitation. Patient was a poor historian. History is through the custodial note. History also from family member when they came in. Patient complaining of generalize weakness. No chest pain. Thought that she may have a panic attack as when her heart rate was fast. Denies any other complaint. GI consulted for N/V. HPI as noted above. Pt seen on floor, awake A&Ox4 NAD with no active s/sx of N/V/D. Per patient, she experienced episodes of emesis x 3-4 days prior to admission. Denied any hematemesis or coffee grounds. DM x 15 years. Last colonoscopy approximately 2 years ago with colonic polyps. No history of upper endoscopy. Presents today with mild anemia, hyperbilirubinuria. CT AP reviewed showed to have right pleural effusion and diverticulosis. Home Meds Reported Medications Albuterol Sulfate (VENTOLIN HFA) 18 Gm Hfa.aer.ad, 2 PUFFS INH EVERY 6 HOURS, # 18 GM 0 Refills 04/20/17 Furosemide* (LASIX*) 40 Mg Tablet, 40 MG ORAL DAILY, TAB 04/20/17 Metformin Hcl* (METFORMIN HCL*) 500 Mg Tablet, 500 MG ORAL TWICE A DAY, TAB 04/20/17 Apixaban (ELIQUIS) 5 Mg Tablet, 5 MG PO BID, TAB 04/20/17 Diltiazem Hcl* (CARDIZEM CD*) 120 Mg Cap.er.24h, 360 MG ORAL BID, CAP Do not open, chew or crush capsule; swallow whole 04/20/17 Med list reviewed/reconciled: Yes Allergies: Coded Allergies: MILK CONTAINING PRODUCTS (Verified Allergy, Unknown, 04/20/17) Lactose Intolerant TRAMADOL (Verified Allergy, Unknown, 04/19/17) Patient History History Provided By: Patient, Medical Record [facility] Narrative Past Medical History: see triage record, old chart reviewed Pertinent Family History: none Social History: Denies: smoking Last Menstrual Period: none Now: No Immunizations: other Reviewed Nursing Documentation: PMH: Agreed, PSxH: Agreed Nursing Documentation-PMH Hx Cardiac Problems: No - CHF Hx Hypertension: Yes Hx Diabetes: Yes Review of Systems All Other Systems: negative except mentioned in HPI Physical Exam Vital Signs Date Time Temp Pulse Resp B/P (MAP) Pulse Ox O2 Delivery O2 Flow Rate FiO2 04/19/17 22:36 97.9 132 15 176/103 98 Nasal Cannula 2.0 04/20/17 19:35 28 Sp02 EP Interpretation: reviewed, normal Labs Laboratory Tests Test 04/20/17 18:00 04/21/17 08:00 Urine Random Sodium 30 MEQ/L (20-110) White Blood Count 11.0 K/UL (4.8-10.8) H Red Blood Count 4.00 M/UL (4.20-5.40) L Hemoglobin 11.7 G/DL (12.0-16.0) L Hematocrit 38.3 % (37.0-47.0) Mean Corpuscular Volume 96 FL (80-99) Mean Corpuscular Hemoglobin 29.3 PG (27.0-31.0) Mean Corpuscular Hemoglobin Concent 30.6 G/DL (32.0-36.0) L Red Cell Distribution Width 14.9 % (11.6-14.8) H Platelet Count 219 K/UL (150-450) Mean Platelet Volume 8.4 FL (6.5-10.1) Neutrophils (%) (Auto) % (45.0-75.0) Lymphocytes (%) (Auto) % (20.0-45.0) Monocytes (%) (Auto) % (1.0-10.0) Eosinophils (%) (Auto) % (0.0-3.0) Basophils (%) (Auto) % (0.0-2.0) Differential Total Cells Counted 100 Neutrophils % (Manual) 90 % (45-75) H Lymphocytes % (Manual) 8 % (20-45) L Monocytes % (Manual) 1 % (1-10) Eosinophils % (Manual) 1 % (0-3) Basophils % (Manual) 0 % (0-2) Band Neutrophils 0 % (0-8) Platelet Estimate Adequate Platelet Morphology Normal Hypochromasia 1+ Anisocytosis 1+ Sodium Level 138 MMOL/L (136-145) Potassium Level 5.0 MMOL/L (3.5-5.1) Chloride Level 100 MMOL/L (98-107) Carbon Dioxide Level 26 MMOL/L (21-32) Anion Gap 12 mmol/L (5-15) Blood Urea Nitrogen 42 mg/dL (7-18) H Creatinine 2.2 MG/DL (0.55-1.30) H Estimat Glomerular Filtration Rate mL/min (>60) Glucose Level 157 MG/DL (74-106) H Hemoglobin A1c 6.6 % (4.3-6.0) H Calcium Level 9.4 MG/DL (8.5-10.1) Phosphorus Level 3.8 MG/DL (2.5-4.9) Total Bilirubin 1.9 MG/DL (0.2-1.0) H Direct Bilirubin 1.2 MG/DL (0.0-0.3) H Aspartate Amino Transf (AST/SGOT) 37 U/L (15-37) Alanine Aminotransferase (ALT/SGPT) 35 U/L (12-78) Alkaline Phosphatase 88 U/L (46-116) Total Protein 8.2 G/DL (6.4-8.2) Albumin 3.3 G/DL (3.4-5.0) L Globulin 4.9 g/dL Albumin/Globulin Ratio 0.7 (1.0-2.7) L Thyroid Stimulating Hormone (TSH) 3.953 uiU/mL (0.358-3.740) General Appearance: well appearing, no apparent distress, alert, obese Head: normocephalic EENT: PERRL/EOMI, normal ENT inspection Neck: supple Respiratory: normal breath sounds, no respiratory distress Cardiovascular: normal rate Gastrointestinal: normal inspection, non tender, soft, normal bowel sounds, non -distended Rectal: deferred Genitourinary: no CVA tenderness Musculoskeletal: normal inspection, back normal Neurologic: normal inspection, alert, oriented x3, responsive Psychiatric: normal inspection, judgement/insight normal, memory normal Skin: normal inspection, normal color, no rash, warm/dry, palpation normal, well hydrated Lymphatic: normal inspection, no adenopathy Current Medications Current Medications Medications (Trade) Dose Ordered Sig/Edda Route PRN Reason Start Time Stop Time Status Last Admin Dose Admin Acetaminophen/ Hydrocodone Bitart ([place] 5/325) 1 tab Q6H PRN ORAL For Pain 04/20/17 14:00 04/27/17 13:59 Albuterol Sulfate (Proventil MDI) 1 puff Q4H PRN INH Shortness of Breath 04/20/17 20:15 05/20/17 20:14 Apixaban (Eliquis) 5 mg BID ORAL 04/21/17 09:00 05/21/17 08:59 04/21/17 09:08 Atenolol (Tenormin) 50 mg Q12HR ORAL 04/20/17 21:00 05/20/17 20:59 04/20/17 21:14 Beclomethasone Dipropionate (Qvar 40 Inhaler) 1 puff BIDRT INH 04/21/17 13:00 05/21/17 12:59 Bisacodyl (Dulcolax) 10 mg DAILYPRN PRN RECTAL Constipation 04/20/17 16:00 05/20/17 15:59 Cefazolin Sodium 0.5 gm/Dextrose 55 ml @ 110 mls/hr Q12HR@0400,1600 IV 04/21/17 04:00 04/28/17 03:59 04/21/17 03:35 Diltiazem HCl (Cardizem) 120 mg TID ORAL 04/20/17 13:00 05/20/17 12:59 04/21/17 09:08 Diphenoxylate HCl/ Atropine (Lomotil) 1 mg BID PRN ORAL Diarrhea 04/20/17 18:00 05/20/17 17:59 04/21/17 09:09 Docusate Sodium (Colace) 100 mg TWICE A DAY ORAL 04/20/17 18:00 05/20/17 17:59 04/21/17 09:07 Furosemide (Lasix) 40 mg DAILY ORAL 04/21/17 09:00 05/21/17 08:59 04/21/17 09:10 Insulin Detemir (Levemir) 8 units BEDTIME SUBQ 04/20/17 21:00 05/20/17 20:59 04/20/17 21:17 Insulin Detemir (Levemir) 16 units DAILY SUBQ 04/21/17 09:00 1/17/18 08:59 04/21/17 09:21 Lactobacillus Acidophilus (Culturelle) 1 tab TWICE A DAY ORAL 04/20/17 18:00 05/20/17 17:59 04/21/17 09:09 Magnesium Hydroxide (Mom) 30 ml DAILYPRN PRN ORAL Constipation 04/20/17 16:00 05/20/17 15:59 Methylprednisolone Sodium Succinate (Solu-MEDROL) 40 mg EVERY 8 HOURS IVP 04/20/17 22:00 05/20/17 21:59 04/21/17 05:16 Multivitamins (Multivitamins) 1 tab DAILY ORAL 04/21/17 09:00 05/21/17 08:59 04/21/17 09:10 Ondansetron HCl (Zofran) 4 mg THREE TIMES A DAY ORAL 04/20/17 13:00 05/20/17 12:59 04/21/17 09:09 Rifampin (Rifadin) 300 mg EVERY 12 HOURS ORAL 04/20/17 21:00 05/20/17 20:59 04/21/17 09:09 Sennosides (Senokot) 17.2 mg QHS ORAL 04/20/17 21:00 05/20/17 20:59 04/20/17 21:12 Sitagliptin Phosphate (Januvia) 25 mg ACBREAKFAST ORAL 04/21/17 06:30 05/21/17 06:29 04/21/17 05:16 GI: Plan Problems: (1) Nausea & vomiting (2) Hyperbilirubinemia (3) Anemia (4) CHF exacerbation (5) Gastroparesis Plan CT AP reviewed >> see full report - R side pleural effusion - diverticulosis defer GI procedures given elevated troponin levels >> symptomatic treatment at this time anemia work up OB stool r/o GI bleed monitor H&H, prn transfusions bowel regime >> colace + senokot low dose reglan ppi fu labs, LFTs pt on Eliquis Discussed with Dr. Mojica. Thank you for this patient referral, we will follow. MÓNICA MOJICA 04/22/17 0834: History of Present Illness General Reason for Hospitalization: General Complaint Present Illness Home Meds Reported Medications Albuterol Sulfate (VENTOLIN HFA) 18 Gm Hfa.aer.ad, 2 PUFFS INH EVERY 6 HOURS, # 18 GM 0 Refills 04/20/17 Furosemide* (LASIX*) 40 Mg Tablet, 40 MG ORAL DAILY, TAB 04/20/17 Metformin Hcl* (METFORMIN HCL*) 500 Mg Tablet, 500 MG ORAL TWICE A DAY, TAB 04/20/17 Apixaban (ELIQUIS) 5 Mg Tablet, 5 MG PO BID, TAB 04/20/17 Diltiazem Hcl* (CARDIZEM CD*) 120 Mg Cap.er.24h, 360 MG ORAL BID, CAP Do not open, chew or crush capsule; swallow whole 04/20/17 Allergies: Coded Allergies: MILK CONTAINING PRODUCTS (Verified Allergy, Unknown, 04/20/17) Lactose Intolerant TRAMADOL (Verified Allergy, Unknown, 04/19/17) GI: Plan Plan The patient was seen and examined at bedside and all new and available data was reviewed in the patients chart. I agree with the above findings, impression and plan. (Patient seen earlier today. Signature stamp does not reflect patient encounter time.). - MD Krystal LopezFl[facility] Healthcare Clarke N.PArmand Apr 21, 2017 12:07 MÓNICA MOJICA Apr 22, 2017 08:34
--- NOTE | 2017-04-21 13:17 | Infectious Diseases Prog Note ---
Assessment/Plan Assessment/Plan A; R knee prosthesis infection Atrial fibrillation DM Obesity Degenerative joint disease Diarrhea, resolved P: Continue Ancef & Rifampin Subjective ROS Limited/Unobtainable: No Respiratory: Reports: no symptoms Cardiovascular: Reports: no symptoms Gastrointestinal/Abdominal: Reports: no symptoms Genitourinary: Reports: no symptoms Allergies: Coded Allergies: MILK CONTAINING PRODUCTS (Verified Allergy, Unknown, 04/20/17) Lactose Intolerant TRAMADOL (Verified Allergy, Unknown, 04/19/17) Objective Vital Signs Last 24 Hour Vital Signs Date Time Temp Pulse Resp B/P (MAP) Pulse Ox O2 Delivery O2 Flow Rate FiO2 04/21/17 12:47 48 125/68 04/21/17 09:08 48 125/68 04/21/17 09:00 48 125/68 04/21/17 08:00 87 04/21/17 08:00 97.2 48 21 125/68 97 04/21/17 04:00 84 04/21/17 00:27 97.0 43 24 115/61 100 Nasal Cannula 2.0 04/21/17 00:00 84 04/20/17 23:03 122 04/20/17 21:14 95 139/70 04/20/17 20:16 97.0 95 28 139/70 99 Nasal Cannula 2.0 04/20/17 20:00 123 04/20/17 19:35 Nasal Cannula 2.0 28 04/20/17 19:35 97 Nasal Cannula 2.0 28 04/20/17 19:35 61 24 98 Nasal Cannula 2.0 28 04/20/17 19:35 67 24 97 Nasal Cannula 2.0 28 04/20/17 18:34 88 117/52 04/20/17 16:00 96.8 64 18 105/64 100 Nasal Cannula 2.0 04/20/17 16:00 64 04/20/17 13:33 145 117/78 Height (Feet): 5 Height (Inches): 3.00 Weight (Pounds): 192 General Appearance: no acute distress HEENT: mucous membranes moist Respiratory/Chest: lungs clear Cardiovascular: bradycardia Abdomen: soft, non tender Extremities: no edema Neurologic/Psychiatric: alert, oriented x 3, responsive Laboratory Tests Test 04/20/17 18:00 04/21/17 08:00 Urine Random Sodium 30 MEQ/L (20-110) White Blood Count 11.0 K/UL (4.8-10.8) H Red Blood Count 4.00 M/UL (4.20-5.40) L Hemoglobin 11.7 G/DL (12.0-16.0) L Hematocrit 38.3 % (37.0-47.0) Mean Corpuscular Volume 96 FL (80-99) Mean Corpuscular Hemoglobin 29.3 PG (27.0-31.0) Mean Corpuscular Hemoglobin Concent 30.6 G/DL (32.0-36.0) L Red Cell Distribution Width 14.9 % (11.6-14.8) H Platelet Count 219 K/UL (150-450) Mean Platelet Volume 8.4 FL (6.5-10.1) Neutrophils (%) (Auto) % (45.0-75.0) Lymphocytes (%) (Auto) % (20.0-45.0) Monocytes (%) (Auto) % (1.0-10.0) Eosinophils (%) (Auto) % (0.0-3.0) Basophils (%) (Auto) % (0.0-2.0) Differential Total Cells Counted 100 Neutrophils % (Manual) 90 % (45-75) H Lymphocytes % (Manual) 8 % (20-45) L Monocytes % (Manual) 1 % (1-10) Eosinophils % (Manual) 1 % (0-3) Basophils % (Manual) 0 % (0-2) Band Neutrophils 0 % (0-8) Platelet Estimate Adequate Platelet Morphology Normal Hypochromasia 1+ Anisocytosis 1+ Sodium Level 138 MMOL/L (136-145) Potassium Level 5.0 MMOL/L (3.5-5.1) Chloride Level 100 MMOL/L (98-107) Carbon Dioxide Level 26 MMOL/L (21-32) Anion Gap 12 mmol/L (5-15) Blood Urea Nitrogen 42 mg/dL (7-18) H Creatinine 2.2 MG/DL (0.55-1.30) H Estimat Glomerular Filtration Rate mL/min (>60) Glucose Level 157 MG/DL (74-106) H Hemoglobin A1c 6.6 % (4.3-6.0) H Calcium Level 9.4 MG/DL (8.5-10.1) Phosphorus Level 3.8 MG/DL (2.5-4.9) Total Bilirubin 1.9 MG/DL (0.2-1.0) H Direct Bilirubin 1.2 MG/DL (0.0-0.3) H Aspartate Amino Transf (AST/SGOT) 37 U/L (15-37) Alanine Aminotransferase (ALT/SGPT) 35 U/L (12-78) Alkaline Phosphatase 88 U/L (46-116) Total Protein 8.2 G/DL (6.4-8.2) Albumin 3.3 G/DL (3.4-5.0) L Globulin 4.9 g/dL Albumin/Globulin Ratio 0.7 (1.0-2.7) L Thyroid Stimulating Hormone (TSH) 3.953 uiU/mL (0.358-3.740) Current Medications Medications (Trade) Dose Ordered Sig/Edda Route PRN Reason Start Time Stop Time Status Last Admin Dose Admin Acetaminophen/ Hydrocodone Bitart (Argillite 5/325) 1 tab Q6H PRN ORAL For Pain 04/20/17 14:00 04/27/17 13:59 Albuterol Sulfate (Proventil MDI) 1 puff Q4H PRN INH Shortness of Breath 04/20/17 20:15 05/20/17 20:14 Apixaban (Eliquis) 5 mg BID ORAL 04/21/17 09:00 05/21/17 08:59 04/21/17 09:08 Atenolol (Tenormin) 50 mg Q12HR ORAL 04/20/17 21:00 05/20/17 20:59 04/20/17 21:14 Beclomethasone Dipropionate (Qvar 40 Inhaler) 1 puff BIDRT INH 04/21/17 13:00 05/21/17 12:59 Bisacodyl (Dulcolax) 10 mg DAILYPRN PRN RECTAL Constipation 04/20/17 16:00 05/20/17 15:59 Cefazolin Sodium 0.5 gm/Dextrose 55 ml @ 110 mls/hr Q12HR@0400,1600 IV 04/21/17 04:00 04/28/17 03:59 04/21/17 03:35 Diltiazem HCl (Cardizem) 120 mg TID ORAL 04/20/17 13:00 05/20/17 12:59 12/18/17 12:47 Diphenoxylate HCl/ Atropine (Lomotil) 1 mg BID PRN ORAL Diarrhea 04/20/17 18:00 05/20/17 17:59 04/21/17 09:09 Docusate Sodium (Colace) 100 mg TWICE A DAY ORAL 04/20/17 18:00 05/20/17 17:59 04/21/17 09:07 Furosemide (Lasix) 40 mg DAILY ORAL 04/21/17 09:00 05/21/17 08:59 04/21/17 09:10 Insulin Detemir (Levemir) 8 units BEDTIME SUBQ 04/20/17 21:00 05/20/17 20:59 04/20/17 21:17 Insulin Detemir (Levemir) 16 units DAILY SUBQ 04/21/17 09:00 05/21/17 08:59 04/21/17 09:21 Lactobacillus Acidophilus (Culturelle) 1 tab TWICE A DAY ORAL 04/20/17 18:00 05/20/17 17:59 04/21/17 09:09 Magnesium Hydroxide (Mom) 30 ml DAILYPRN PRN ORAL Constipation 04/20/17 16:00 05/20/17 15:59 Methylprednisolone Sodium Succinate (Solu-MEDROL) 40 mg EVERY 8 HOURS IVP 04/20/17 22:00 05/20/17 21:59 04/21/17 05:16 Metoclopramide HCl (Reglan) 5 mg TID ORAL 04/21/17 13:00 05/21/17 12:59 04/21/17 12:49 Multivitamins (Multivitamins) 1 tab DAILY ORAL 04/21/17 09:00 05/21/17 08:59 04/21/17 09:10 Ondansetron HCl (Zofran) 4 mg THREE TIMES A DAY ORAL 04/20/17 13:00 05/20/17 12:59 04/21/17 12:47 Rifampin (Rifadin) 300 mg EVERY 12 HOURS ORAL 04/20/17 21:00 05/20/17 20:59 04/21/17 09:09 Sennosides (Senokot) 17.2 mg QHS ORAL 04/20/17 21:00 05/20/17 20:59 04/20/17 21:12 Sitagliptin Phosphate (Januvia) 25 mg ACBREAKFAST ORAL 04/21/17 06:30 05/21/17 06:29 04/21/17 05:16 TIMOTHY BHATIA Apr 21, 2017 13:17
--- NOTE | 2017-04-21 14:06 | Nephrology Progress Note ---
Assessment/Plan Problem List: (1) CKD (chronic kidney disease) (2) CHF exacerbation (3) DM (diabetes mellitus) (4) HTN (hypertension) Assessment Renal function stable Plan continue with diuretics check PTH follow BMP Subjective Subjective In NAD Objective Objective Last 24 Hour Vital Signs Date Time Temp Pulse Resp B/P (MAP) Pulse Ox O2 Delivery O2 Flow Rate FiO2 04/21/17 12:47 48 125/68 04/21/17 09:08 48 125/68 04/21/17 09:00 48 125/68 04/21/17 08:00 87 04/21/17 08:00 97.2 48 21 125/68 97 04/21/17 04:00 84 04/21/17 00:27 97.0 43 24 115/61 100 Nasal Cannula 2.0 04/21/17 00:00 84 04/20/17 23:03 122 04/20/17 21:14 95 139/70 04/20/17 20:16 97.0 95 28 139/70 99 Nasal Cannula 2.0 04/20/17 20:00 123 04/20/17 19:35 Nasal Cannula 2.0 28 04/20/17 19:35 97 Nasal Cannula 2.0 28 04/20/17 19:35 61 24 98 Nasal Cannula 2.0 28 04/20/17 19:35 67 24 97 Nasal Cannula 2.0 28 04/20/17 18:34 88 117/52 04/20/17 16:00 96.8 64 18 105/64 100 Nasal Cannula 2.0 04/20/17 16:00 64 Laboratory Tests 04/20/17 18:00: Urine Random Sodium 30 04/21/17 08:00: White Blood Count 11.0H, Red Blood Count 4.00L, Hemoglobin 11.7L, Hematocrit 38.3, Mean Corpuscular Volume 96, Mean Corpuscular Hemoglobin 29.3, Mean Corpuscular Hemoglobin Concent 30.6L, Red Cell Distribution Width 14.9H, Platelet Count 219, Mean Platelet Volume 8.4, Neutrophils (%) (Auto) , Lymphocytes (%) (Auto) , Monocytes (%) (Auto) , Eosinophils (%) (Auto) , Basophils (%) (Auto) , Differential Total Cells Counted 100, Neutrophils % ( Manual) 90H, Lymphocytes % (Manual) 8L, Monocytes % (Manual) 1, Eosinophils % ( Manual) 1, Basophils % (Manual) 0, Band Neutrophils 0, Platelet Estimate Adequate, Platelet Morphology Normal, Hypochromasia 1+, Anisocytosis 1+, Sodium Level 138, Potassium Level 5.0, Chloride Level 100, Carbon Dioxide Level 26, Anion Gap 12, Blood Urea Nitrogen 42H, Creatinine 2.2H, Estimat Glomerular Filtration Rate , Glucose Level 157H, Hemoglobin A1c 6.6H, Calcium Level 9.4, Phosphorus Level 3.8, Total Bilirubin 1.9H, Direct Bilirubin 1.2H, Aspartate Amino Transf (AST/SGOT) 37, Alanine Aminotransferase (ALT/SGPT) 35, Alkaline Phosphatase 88, Total Protein 8.2, Albumin 3.3L, Globulin 4.9, Albumin/Globulin Ratio 0.7L, Thyroid Stimulating Hormone (TSH) 3.953H Height (Feet): 5 Height (Inches): 3.00 Weight (Pounds): 192 Cardiovascular: normal rate Respiratory/Chest: lungs clear Extremities: moderate edema VLADIMIR BHATIA Apr 21, 2017 14:06
--- NOTE | 2017-04-21 14:41 | General Progress Note ---
Assessment/Plan Status Narrative acute on chronci kidney failure hypertension acute diastolic heart dfailure afib with RVT hypertneiosn diabetic gastropathy Assessment/Plan ivf monitro the euvolemic state cardiology and renal consult and id eval historyof septic knee on antibiotic. Subjective Date patient seen: Apr 21, 2017 Time patient seen: 14:39 Constitutional: Reports: no symptoms HEENT: Reports: no symptoms Allergies: Coded Allergies: MILK CONTAINING PRODUCTS (Verified Allergy, Unknown, 04/20/17) Lactose Intolerant TRAMADOL (Verified Allergy, Unknown, 04/19/17) Objective Last 24 Hour Vital Signs Date Time Temp Pulse Resp B/P (MAP) Pulse Ox O2 Delivery O2 Flow Rate FiO2 04/21/17 12:47 48 125/68 04/21/17 12:00 63 04/21/17 09:08 48 125/68 04/21/17 09:00 48 125/68 04/21/17 08:00 87 04/21/17 08:00 97.2 48 21 125/68 97 04/21/17 04:00 84 04/21/17 00:27 97.0 43 24 115/61 100 Nasal Cannula 2.0 04/21/17 00:00 84 04/20/17 23:03 122 04/20/17 21:14 95 139/70 04/20/17 20:16 97.0 95 28 139/70 99 Nasal Cannula 2.0 04/20/17 20:00 123 04/20/17 19:35 Nasal Cannula 2.0 28 04/20/17 19:35 97 Nasal Cannula 2.0 28 04/20/17 19:35 61 24 98 Nasal Cannula 2.0 28 04/20/17 19:35 67 24 97 Nasal Cannula 2.0 28 04/20/17 18:34 88 117/52 04/20/17 16:00 96.8 64 18 105/64 100 Nasal Cannula 2.0 04/20/17 16:00 64 Laboratory Tests 04/20/17 18:00: Urine Random Sodium 30 04/21/17 08:00: White Blood Count 11.0H, Red Blood Count 4.00L, Hemoglobin 11.7L, Hematocrit 38.3, Mean Corpuscular Volume 96, Mean Corpuscular Hemoglobin 29.3, Mean Corpuscular Hemoglobin Concent 30.6L, Red Cell Distribution Width 14.9H, Platelet Count 219, Mean Platelet Volume 8.4, Neutrophils (%) (Auto) , Lymphocytes (%) (Auto) , Monocytes (%) (Auto) , Eosinophils (%) (Auto) , Basophils (%) (Auto) , Differential Total Cells Counted 100, Neutrophils % ( Manual) 90H, Lymphocytes % (Manual) 8L, Monocytes % (Manual) 1, Eosinophils % ( Manual) 1, Basophils % (Manual) 0, Band Neutrophils 0, Platelet Estimate Adequate, Platelet Morphology Normal, Hypochromasia 1+, Anisocytosis 1+, Sodium Level 138, Potassium Level 5.0, Chloride Level 100, Carbon Dioxide Level 26, Anion Gap 12, Blood Urea Nitrogen 42H, Creatinine 2.2H, Estimat Glomerular Filtration Rate , Glucose Level 157H, Hemoglobin A1c 6.6H, Calcium Level 9.4, Phosphorus Level 3.8, Total Bilirubin 1.9H, Direct Bilirubin 1.2H, Aspartate Amino Transf (AST/SGOT) 37, Alanine Aminotransferase (ALT/SGPT) 35, Alkaline Phosphatase 88, Total Protein 8.2, Albumin 3.3L, Globulin 4.9, Albumin/Globulin Ratio 0.7L, Thyroid Stimulating Hormone (TSH) 3.953H Height (Feet): 5 Height (Inches): 3.00 Weight (Pounds): 192 General Appearance: WD/WN EENT: PERRL/EOMI Cardiovascular: no JVD Respiratory/Chest: lungs clear, other - diminidshged bibaslar breath sound Abdomen: non tender, soft Extremities: other - no edema HORACE FONTAINE Apr 21, 2017 14:41
[2017-04-21 16:00] VITALS: BP 109/73
--- NOTE | 2017-04-21 18:45 | Cardiology Progress Note ---
Assessment/Plan Assessment/Plan 1. Most likely chronic atrial fibrillation. The patient will be continued on Eliquis. 2. Dilated cardiomyopathy with LVEF at 20%, global LV hypokinesia, ? ischemic CM , ? prior cardiac cath history. Would start hydralazine and Isordil in viwe of RF, although it appears to be CKD. Would switch atenolol to coreg.Agree with lasix, probably not a suitable candidate for aldactone therapy. 3. Slight elevation of troponin I level. This could be secondary to non-ST elevation myocardial infarction versus troponin leak due to myocarditis vs CKD. Currently, the patient is chest pain-free. Subjective Cardiovascular: Reports: no symptoms Respiratory: Reports: no symptoms Gastrointestinal/Abdominal: Reports: no symptoms Genitourinary: Reports: no symptoms Subjective Atrial fibrillation at 60. Objective Last 24 Hour Vital Signs Date Time Temp Pulse Resp B/P (MAP) Pulse Ox O2 Delivery O2 Flow Rate FiO2 04/21/17 18:27 60 109/73 04/21/17 16:00 97.0 60 21 109/73 99 Nasal Cannula 2.0 04/21/17 16:00 61 04/21/17 12:47 48 125/68 04/21/17 12:00 63 04/21/17 09:08 48 125/68 04/21/17 09:00 48 125/68 04/21/17 08:00 87 04/21/17 08:00 97.2 48 21 125/68 97 04/21/17 04:00 84 04/21/17 00:27 97.0 43 24 115/61 100 Nasal Cannula 2.0 04/21/17 00:00 84 04/20/17 23:03 122 04/20/17 21:14 95 139/70 04/20/17 20:16 97.0 95 28 139/70 99 Nasal Cannula 2.0 04/20/17 20:00 123 04/20/17 19:35 Nasal Cannula 2.0 28 04/20/17 19:35 97 Nasal Cannula 2.0 28 04/20/17 19:35 61 24 98 Nasal Cannula 2.0 28 04/20/17 19:35 67 24 97 Nasal Cannula 2.0 28 Intake and Output 04/21/17 04/22/17 19:00 07:00 Output Total 600 ml Balance -600 ml Output Urine Total 600 ml # Bowel Movements 1 2D Echo: LVEF at 20%, global LV hypokinesia, mod MR, RVSP 61 mmHg c/w pul. HTN Laboratory Tests Test 04/21/17 08:00 White Blood Count 11.0 K/UL (4.8-10.8) H Red Blood Count 4.00 M/UL (4.20-5.40) L Hemoglobin 11.7 G/DL (12.0-16.0) L Hematocrit 38.3 % (37.0-47.0) Mean Corpuscular Volume 96 FL (80-99) Mean Corpuscular Hemoglobin 29.3 PG (27.0-31.0) Mean Corpuscular Hemoglobin Concent 30.6 G/DL (32.0-36.0) L Red Cell Distribution Width 14.9 % (11.6-14.8) H Platelet Count 219 K/UL (150-450) Mean Platelet Volume 8.4 FL (6.5-10.1) Neutrophils (%) (Auto) % (45.0-75.0) Lymphocytes (%) (Auto) % (20.0-45.0) Monocytes (%) (Auto) % (1.0-10.0) Eosinophils (%) (Auto) % (0.0-3.0) Basophils (%) (Auto) % (0.0-2.0) Differential Total Cells Counted 100 Neutrophils % (Manual) 90 % (45-75) H Lymphocytes % (Manual) 8 % (20-45) L Monocytes % (Manual) 1 % (1-10) Eosinophils % (Manual) 1 % (0-3) Basophils % (Manual) 0 % (0-2) Band Neutrophils 0 % (0-8) Platelet Estimate Adequate Platelet Morphology Normal Hypochromasia 1+ Anisocytosis 1+ Sodium Level 138 MMOL/L (136-145) Potassium Level 5.0 MMOL/L (3.5-5.1) Chloride Level 100 MMOL/L (98-107) Carbon Dioxide Level 26 MMOL/L (21-32) Anion Gap 12 mmol/L (5-15) Blood Urea Nitrogen 42 mg/dL (7-18) H Creatinine 2.2 MG/DL (0.55-1.30) H Estimat Glomerular Filtration Rate mL/min (>60) Glucose Level 157 MG/DL (74-106) H Hemoglobin A1c 6.6 % (4.3-6.0) H Calcium Level 9.4 MG/DL (8.5-10.1) Phosphorus Level 3.8 MG/DL (2.5-4.9) Total Bilirubin 1.9 MG/DL (0.2-1.0) H Direct Bilirubin 1.2 MG/DL (0.0-0.3) H Aspartate Amino Transf (AST/SGOT) 37 U/L (15-37) Alanine Aminotransferase (ALT/SGPT) 35 U/L (12-78) Alkaline Phosphatase 88 U/L (46-116) Total Protein 8.2 G/DL (6.4-8.2) Albumin 3.3 G/DL (3.4-5.0) L Globulin 4.9 g/dL Albumin/Globulin Ratio 0.7 (1.0-2.7) L Thyroid Stimulating Hormone (TSH) 3.953 uiU/mL (0.358-3.740) Objective GENERAL: The patient is a very unfortunate 86-year-old female, seen in Cardiology consultation at the request of Dr. Mathew. She is currently in mild respiratory distress, awake and alert. The patient shows wheezing. HEENT: Atraumatic and normocephalic. Anicteric. Pupils are equal, round, and reactive to light and accommodation. Extraocular muscles intact. NECK: JVP cannot be assessed, as she is lying down. CARDIOVASCULAR: Normal S1 and S2. Irregularly irregular rhythm. A 2/6 mid systolic murmur at the left sternal border. PMI is at fourth intercostal space in the midclavicular line. LUNGS: There is bilateral diffuse rhonchi. ABDOMEN: Soft, nontender, and nondistended. No hepatosplenomegaly. Positive bowel sounds. EXTREMITIES: No evidence of edema, clubbing, or cyanosis. MAGALIS AVALOS Apr 21, 2017 18:45
[2017-04-21 20:00] VITALS: BP 100/58
[2017-04-21] MEDS: Sennosides 8.6mg ORAL SCH ×2 (20:58→21:00)
[2017-04-21] MEDS: Qvar 40mcg Inhaler 6.8 gm INH SCH ×2 (21:05→21:34)
[2017-04-22] VITALS (7 sets, daily range): BP systolic 103–144; BP diastolic 62–76
[2017-04-22] MEDS: ceFAZolin 0.5gm in D5W 55ml IV SCH ×2 (04:25→16:19)
[2017-04-22] MEDS: Solu-MEDROL 40mg Inj IVP SCH ×3 (05:43→22:14)
[2017-04-22] MEDS: sitaGLIPtin 25mg tab ORAL SCH (05:43)
[2017-04-22 08:55] LABS: MEAN CORPUSCULAR HEMOGLOBIN 29.7 PG (27.0-31.0); MEAN CORPUSCULAR HGB CONC 31.2 G/DL (32.0-36.0); MEAN CORPUSCULAR VOLUME 95 FL (80-99); MEAN PLATELET VOLUME 8.8 FL (6.5-10.1); PLATELET COUNT 254 K/UL (150-450); RED BLOOD COUNT 3.97 M/UL (4.20-5.40); RED CELL DISTRIBUTION WIDTH 14.5 % (11.6-14.8); WHITE BLOOD COUNT 10.9 K/UL (4.8-10.8)
[2017-04-22 09:12] LABS: ALANINE AMINOTRANSFERASE 33 U/L (12-78); ALBUMIN/GLOBULIN RATIO 0.7 (1.0-2.7); ANION GAP 10 mmol/L (5-15); ASPARTATE AMINO TRANSFERASE 40 U/L (15-37); CALCIUM 9.2 MG/DL (8.5-10.1); CARBON DIOXIDE 27 MMOL/L (21-32); CHLORIDE 100 MMOL/L (98-107); CREATININE 2.5 MG/DL (0.55-1.30); POTASSIUM 5.4 MMOL/L (3.5-5.1); SODIUM 137 MMOL/L (136-145); TOTAL PROTEIN 7.8 G/DL (6.4-8.2)
[2017-04-22 09:13] LABS: BILIRUBIN,DIRECT 1.3 MG/DL (0.0-0.3)
[2017-04-22] MEDS: Eliquis 2.5mg tablet ORAL SCH ×2 (09:33→17:25)
[2017-04-22] MEDS: Lactobacillus-GG tablet ORAL SCH ×2 (09:34→17:24)
[2017-04-22] MEDS: dilTIAZem HCl 60mg tab ORAL SCH ×2 (09:34→22:19)
[2017-04-22] MEDS: Furosemide 40mg tab ORAL SCH (09:35)
[2017-04-22] MEDS: Docusate 100mg cap ORAL SCH ×2 (09:35→17:25)
--- NOTE | 2017-04-22 09:49 | Nephrology Progress Note ---
Assessment/Plan Problem List: (1) CKD (chronic kidney disease) (2) CHF exacerbation (3) DM (diabetes mellitus) (4) HTN (hypertension) (5) ARF (acute renal failure) Assessment: secondary to diuretics ? cardiorenal ? R/O obstruction Assessment Renal function stable Plan continue with diuretics for now check PTH follow BMP Renal US Subjective Subjective feels better Objective Objective Last 24 Hour Vital Signs Date Time Temp Pulse Resp B/P (MAP) Pulse Ox O2 Delivery O2 Flow Rate FiO2 04/22/17 09:34 54 144/76 04/22/17 09:34 54 144/76 04/22/17 08:00 97.7 54 20 144/76 94 Room Air 04/22/17 04:34 73 04/22/17 04:00 96.6 76 20 122/72 Nasal Cannula 04/22/17 00:00 96.1 73 20 116/71 100 Room Air 04/21/17 23:55 55 04/21/17 21:38 61 22 96 Nasal Cannula 2.0 28 04/21/17 21:38 62 22 97 Nasal Cannula 2.0 28 04/21/17 21:00 58 100/58 04/21/17 20:39 Nasal Cannula 2.0 28 04/21/17 20:39 96 Nasal Cannula 2.0 28 04/21/17 20:00 96.6 82 22 100/58 Nasal Cannula 04/21/17 20:00 99 Nasal Cannula 2.0 04/21/17 19:57 75 04/21/17 18:27 60 109/73 04/21/17 16:00 97.0 60 21 109/73 99 Nasal Cannula 2.0 04/21/17 16:00 61 04/21/17 12:47 48 125/68 04/21/17 12:00 63 Intake and Output 04/22/17 04/23/17 19:00 07:00 Intake Total 240 ml Balance 240 ml Intake Oral 240 ml Laboratory Tests 04/22/17 08:00: White Blood Count 10.9H, Red Blood Count 3.97L, Hemoglobin 11.8L, Hematocrit 37.9, Mean Corpuscular Volume 95, Mean Corpuscular Hemoglobin 29.7, Mean Corpuscular Hemoglobin Concent 31.2L, Red Cell Distribution Width 14.5, Platelet Count 254, Mean Platelet Volume 8.8, Neutrophils (%) (Auto) , Lymphocytes (%) (Auto) , Monocytes (%) (Auto) , Eosinophils (%) (Auto) , Basophils (%) (Auto) , Neutrophils % (Manual) [Pending], Lymphocytes % (Manual) [Pending], Platelet Estimate [Pending], Platelet Morphology [Pending], Sodium Level 137, Potassium Level 5.4H, Chloride Level 100, Carbon Dioxide Level 27, Anion Gap 10, Blood Urea Nitrogen 52H, Creatinine 2.5H, Estimat Glomerular Filtration Rate , Glucose Level 177H, Calcium Level 9.2, Calcium (Send out) [ Pending], Total Bilirubin 1.7H, Direct Bilirubin 1.3H, Aspartate Amino Transf ( AST/SGOT) 40H, Alanine Aminotransferase (ALT/SGPT) 33, Alkaline Phosphatase 90, Troponin I 0.035, Total Protein 7.8, Albumin 3.3L, Globulin 4.5, Albumin/ Globulin Ratio 0.7L, Parathyroid Hormone (Intact) [Pending] Height (Feet): 5 Height (Inches): 3.00 Weight (Pounds): 192 Cardiovascular: normal rate Respiratory/Chest: lungs clear Extremities: moderate edema VLADIMIR BHATIA Apr 22, 2017 09:49
[2017-04-22] MEDS: Levemir Flexpen SUBQ SCH ×2 (10:20→22:15)
[2017-04-22 10:36] LABS: BAND NEUTROPHILS % (MANUAL) 0 % (0-8); BASOPHILS % (MANUAL) 0 % (0-2); EOSINOPHILS % (MANUAL) 0 % (0-3); LYMPHOCYTES % (MANUAL) 6 % (20-45); NEUTROPHILS % (MANUAL) 89 % (45-75); PLATELET ESTIMATE ADEQUATE; PLATELET MORPHOLOGY NORMAL; TOTAL CELLS COUNTED 100
[2017-04-22 10:37] LABS: HYPOCHROMASIA 2+
--- NOTE | 2017-04-22 10:41 | Infectious Diseases Prog Note ---
Assessment/Plan Assessment/Plan A; R knee prosthesis infection Atrial fibrillation DM Obesity Degenerative joint disease Diarrhea, resolved Hematuria P: Continue Ancef & Rifampin UA & UC Subjective ROS Limited/Unobtainable: No Constitutional: Reports: other - feels better Respiratory: Reports: dry cough Cardiovascular: Reports: no symptoms Gastrointestinal/Abdominal: Reports: no symptoms Genitourinary: Reports: hematuria Allergies: Coded Allergies: MILK CONTAINING PRODUCTS (Verified Allergy, Unknown, 04/20/17) Lactose Intolerant TRAMADOL (Verified Allergy, Unknown, 04/19/17) Objective Vital Signs Last 24 Hour Vital Signs Date Time Temp Pulse Resp B/P (MAP) Pulse Ox O2 Delivery O2 Flow Rate FiO2 04/22/17 09:34 54 144/76 04/22/17 09:34 54 144/76 04/22/17 08:00 97.7 54 20 144/76 94 Room Air 04/22/17 04:34 73 04/22/17 04:00 96.6 76 20 122/72 Nasal Cannula 04/22/17 00:00 96.1 73 20 116/71 100 Room Air 04/21/17 23:55 55 04/21/17 21:38 61 22 96 Nasal Cannula 2.0 28 04/21/17 21:38 62 22 97 Nasal Cannula 2.0 28 04/21/17 21:00 58 100/58 04/21/17 20:39 Nasal Cannula 2.0 28 04/21/17 20:39 96 Nasal Cannula 2.0 28 04/21/17 20:00 96.6 82 22 100/58 Nasal Cannula 04/21/17 20:00 99 Nasal Cannula 2.0 04/21/17 19:57 75 04/21/17 18:27 60 109/73 04/21/17 16:00 97.0 60 21 109/73 99 Nasal Cannula 2.0 04/21/17 16:00 61 04/21/17 12:47 48 125/68 04/21/17 12:00 63 Height (Feet): 5 Height (Inches): 3.00 Weight (Pounds): 192 General Appearance: no acute distress HEENT: mucous membranes moist Respiratory/Chest: lungs clear Cardiovascular: bradycardia Abdomen: soft, non tender Genitourinary: other - Ordaz catheter, gross hematuria Extremities: other - mild edema of legs Skin: other - stasis dermatitis of legs Neurologic/Psychiatric: alert, oriented x 3, responsive Microbiology Date/Time Source Procedure Growth Status 04/20/17 00:44 Nasal Nares MRSA Culture - Final NO METHICILLIN RESISTANT STAPH AUREUS... Complete 04/20/17 00:44 Rectum VRE Culture - Final NO VANCOMYCIN RESISTANT ENTEROCOCCUS ... Complete Laboratory Tests Test 04/22/17 08:00 White Blood Count 10.9 K/UL (4.8-10.8) H Red Blood Count 3.97 M/UL (4.20-5.40) L Hemoglobin 11.8 G/DL (12.0-16.0) L Hematocrit 37.9 % (37.0-47.0) Mean Corpuscular Volume 95 FL (80-99) Mean Corpuscular Hemoglobin 29.7 PG (27.0-31.0) Mean Corpuscular Hemoglobin Concent 31.2 G/DL (32.0-36.0) L Red Cell Distribution Width 14.5 % (11.6-14.8) Platelet Count 254 K/UL (150-450) Mean Platelet Volume 8.8 FL (6.5-10.1) Neutrophils (%) (Auto) % (45.0-75.0) Lymphocytes (%) (Auto) % (20.0-45.0) Monocytes (%) (Auto) % (1.0-10.0) Eosinophils (%) (Auto) % (0.0-3.0) Basophils (%) (Auto) % (0.0-2.0) Differential Total Cells Counted 100 Neutrophils % (Manual) 89 % (45-75) H Lymphocytes % (Manual) 6 % (20-45) L Monocytes % (Manual) 5 % (1-10) Eosinophils % (Manual) 0 % (0-3) Basophils % (Manual) 0 % (0-2) Band Neutrophils 0 % (0-8) Platelet Estimate Adequate Platelet Morphology Normal Hypochromasia 2+ Sodium Level 137 MMOL/L (136-145) Potassium Level 5.4 MMOL/L (3.5-5.1) H Chloride Level 100 MMOL/L (98-107) Carbon Dioxide Level 27 MMOL/L (21-32) Anion Gap 10 mmol/L (5-15) Blood Urea Nitrogen 52 mg/dL (7-18) H Creatinine 2.5 MG/DL (0.55-1.30) H Estimat Glomerular Filtration Rate mL/min (>60) Glucose Level 177 MG/DL (74-106) H Calcium Level 9.2 MG/DL (8.5-10.1) Calcium (Send out) Pending Total Bilirubin 1.7 MG/DL (0.2-1.0) H Direct Bilirubin 1.3 MG/DL (0.0-0.3) H Aspartate Amino Transf (AST/SGOT) 40 U/L (15-37) H Alanine Aminotransferase (ALT/SGPT) 33 U/L (12-78) Alkaline Phosphatase 90 U/L (46-116) Troponin I 0.035 ng/mL (0.000-0.056) Total Protein 7.8 G/DL (6.4-8.2) Albumin 3.3 G/DL (3.4-5.0) L Globulin 4.5 g/dL Albumin/Globulin Ratio 0.7 (1.0-2.7) L Parathyroid Hormone (Intact) Pending Current Medications Medications (Trade) Dose Ordered Sig/Edda Route PRN Reason Start Time Stop Time Status Last Admin Dose Admin Acetaminophen/ Hydrocodone Bitart ([place] 5/325) 1 tab Q6H PRN ORAL For Pain 04/20/17 14:00 04/27/17 13:59 Albuterol Sulfate (Proventil MDI) 1 puff Q4H PRN INH Shortness of Breath 04/20/17 20:15 05/20/17 20:14 Apixaban (Eliquis) 5 mg BID ORAL 04/21/17 09:00 05/21/17 08:59 04/22/17 09:33 Atenolol (Tenormin) 50 mg Q12HR ORAL 04/20/17 21:00 05/20/17 20:59 04/22/17 09:34 Beclomethasone Dipropionate (Qvar 40 Inhaler) 1 puff BIDRT INH 04/21/17 13:00 05/21/17 12:59 04/21/17 21:34 Bisacodyl (Dulcolax) 10 mg DAILYPRN PRN RECTAL Constipation 04/20/17 16:00 05/20/17 15:59 Cefazolin Sodium 0.5 gm/Dextrose 55 ml @ 110 mls/hr Q12HR@0400,1600 IV 04/21/17 04:00 04/28/17 03:59 04/22/17 04:25 Diltiazem HCl (Cardizem) 120 mg TID ORAL 04/20/17 13:00 05/20/17 12:59 04/22/17 09:34 Diphenoxylate HCl/ Atropine (Lomotil) 1 mg BID PRN ORAL Diarrhea 04/20/17 18:00 05/20/17 17:59 04/21/17 09:09 Docusate Sodium (Colace) 100 mg TWICE A DAY ORAL 04/20/17 18:00 05/20/17 17:59 04/22/17 09:35 Furosemide (Lasix) 40 mg DAILY ORAL 04/21/17 09:00 05/21/17 08:59 04/22/17 09:35 Insulin Detemir (Levemir) 8 units BEDTIME SUBQ 04/20/17 21:00 05/20/17 20:59 04/21/17 21:05 Insulin Detemir (Levemir) 16 units DAILY SUBQ 04/21/17 09:00 05/21/17 08:59 04/22/17 10:20 Lactobacillus Acidophilus (Culturelle) 1 tab TWICE A DAY ORAL 04/20/17 18:00 05/20/17 17:59 04/22/17 09:34 Magnesium Hydroxide (Mom) 30 ml DAILYPRN PRN ORAL Constipation 04/20/17 16:00 05/20/17 15:59 Methylprednisolone Sodium Succinate (Solu-MEDROL) 40 mg EVERY 8 HOURS IVP 04/20/17 22:00 05/20/17 21:59 04/22/17 05:43 Metoclopramide HCl (Reglan) 5 mg TID ORAL 04/21/17 13:00 05/21/17 12:59 04/22/17 09:34 Multivitamins (Multivitamins) 1 tab DAILY ORAL 04/21/17 09:00 05/21/17 08:59 04/22/17 09:34 Ondansetron HCl (Zofran) 4 mg THREE TIMES A DAY ORAL 04/20/17 13:00 05/20/17 12:59 04/22/17 09:43 Rifampin (Rifadin) 300 mg EVERY 12 HOURS ORAL 04/20/17 21:00 05/20/17 20:59 04/22/17 09:34 Sennosides (Senokot) 17.2 mg QHS ORAL 04/20/17 21:00 05/20/17 20:59 04/20/17 21:12 Sitagliptin Phosphate (Januvia) 25 mg ACBREAKFAST ORAL 04/21/17 06:30 05/21/17 06:29 04/22/17 05:43 TIMOTHY BHATIA Apr 22, 2017 10:41
[2017-04-22] MEDS: Qvar 40mcg Inhaler 6.8 gm INH SCH ×2 (11:02→22:28)
--- NOTE | 2017-04-22 14:26 | GI Progress Note ---
Assessment/Plan Problems: (1) DM (diabetes mellitus) ICD Codes: E11.9 - Type 2 diabetes mellitus without complications SNOMED: 54774291 (2) Gastroparesis ICD Codes: K31.84 - Gastroparesis SNOMED: 887256161 (3) Nausea & vomiting ICD Codes: R11.2 - Nausea with vomiting, unspecified SNOMED: 72754578 (4) Hyperbilirubinemia ICD Codes: E80.6 - Other disorders of bilirubin metabolism SNOMED: 75131565 (5) Anemia ICD Codes: D64.9 - Anemia, unspecified SNOMED: 235403642 Status: stable, unchanged Status Narrative Discussed with Dr. Ordoñez. Assessment/Plan CT AP reviewed >> see full report - R side pleural effusion - diverticulosis defer GI procedures given elevated troponin levels >> symptomatic treatment at this time anemia work up OB stool r/o GI bleed monitor H&H, prn transfusions bowel regime >> colace + senokot low dose reglan ppi fu labs, LFTs pt on Eliquis Subjective Gastrointestinal/Abdominal: Reports: no symptoms Objective Last 24 Hour Vital Signs Date Time Temp Pulse Resp B/P (MAP) Pulse Ox O2 Delivery O2 Flow Rate FiO2 04/22/17 11:02 65 18 96 Nasal Cannula 2.0 28 04/22/17 11:02 65 18 96 Nasal Cannula 2.0 04/22/17 11:02 Nasal Cannula 2.0 28 04/22/17 11:02 95 Nasal Cannula 2.0 28 04/22/17 09:34 54 144/76 04/22/17 09:34 54 144/76 04/22/17 08:00 109 04/22/17 08:00 97.7 54 20 144/76 94 Room Air 04/22/17 04:34 73 04/22/17 04:00 96.6 76 20 122/72 Nasal Cannula 04/22/17 00:00 96.1 73 20 116/71 100 Room Air 04/21/17 23:55 55 04/21/17 21:38 61 22 96 Nasal Cannula 2.0 28 04/21/17 21:38 62 22 97 Nasal Cannula 2.0 28 04/21/17 21:00 58 100/58 04/21/17 20:39 Nasal Cannula 2.0 04/21/17 20:39 96 Nasal Cannula 2.0 28 04/21/17 20:00 96.6 82 22 100/58 Nasal Cannula 04/21/17 20:00 99 Nasal Cannula 2.0 04/21/17 19:57 75 04/21/17 18:27 60 109/73 04/21/17 16:00 97.0 60 21 109/73 99 Nasal Cannula 2.0 04/21/17 16:00 61 Intake and Output 04/22/17 04/23/17 19:00 07:00 Intake Total 240 ml Balance 240 ml Intake Oral 240 ml Laboratory Tests Test 04/22/17 08:00 White Blood Count 10.9 K/UL (4.8-10.8) H Red Blood Count 3.97 M/UL (4.20-5.40) L Hemoglobin 11.8 G/DL (12.0-16.0) L Hematocrit 37.9 % (37.0-47.0) Mean Corpuscular Volume 95 FL (80-99) Mean Corpuscular Hemoglobin 29.7 PG (27.0-31.0) Mean Corpuscular Hemoglobin Concent 31.2 G/DL (32.0-36.0) L Red Cell Distribution Width 14.5 % (11.6-14.8) Platelet Count 254 K/UL (150-450) Mean Platelet Volume 8.8 FL (6.5-10.1) Neutrophils (%) (Auto) % (45.0-75.0) Lymphocytes (%) (Auto) % (20.0-45.0) Monocytes (%) (Auto) % (1.0-10.0) Eosinophils (%) (Auto) % (0.0-3.0) Basophils (%) (Auto) % (0.0-2.0) Differential Total Cells Counted 100 Neutrophils % (Manual) 89 % (45-75) H Lymphocytes % (Manual) 6 % (20-45) L Monocytes % (Manual) 5 % (1-10) Eosinophils % (Manual) 0 % (0-3) Basophils % (Manual) 0 % (0-2) Band Neutrophils 0 % (0-8) Platelet Estimate Adequate Platelet Morphology Normal Hypochromasia 2+ Sodium Level 137 MMOL/L (136-145) Potassium Level 5.4 MMOL/L (3.5-5.1) H Chloride Level 100 MMOL/L (98-107) Carbon Dioxide Level 27 MMOL/L (21-32) Anion Gap 10 mmol/L (5-15) Blood Urea Nitrogen 52 mg/dL (7-18) H Creatinine 2.5 MG/DL (0.55-1.30) H Estimat Glomerular Filtration Rate mL/min (>60) Glucose Level 177 MG/DL (74-106) H Calcium Level 9.2 MG/DL (8.5-10.1) Calcium (Send out) Pending Total Bilirubin 1.7 MG/DL (0.2-1.0) H Direct Bilirubin 1.3 MG/DL (0.0-0.3) H Aspartate Amino Transf (AST/SGOT) 40 U/L (15-37) H Alanine Aminotransferase (ALT/SGPT) 33 U/L (12-78) Alkaline Phosphatase 90 U/L (46-116) Troponin I 0.035 ng/mL (0.000-0.056) Total Protein 7.8 G/DL (6.4-8.2) Albumin 3.3 G/DL (3.4-5.0) L Globulin 4.5 g/dL Albumin/Globulin Ratio 0.7 (1.0-2.7) L Parathyroid Hormone (Intact) Pending Height (Feet): 5 Height (Inches): 3.00 Weight (Pounds): 192 General Appearance: WD/WN, no apparent distress, alert Cardiovascular: normal rate Respiratory/Chest: normal breath sounds, no respiratory distress Abdominal Exam: normal bowel sounds, non tender, soft Extremities: normal range of motion, non-tender Justina Rice N.PArmand Apr 22, 2017 14:25
--- NOTE | 2017-04-22 17:24 | Diagnostic Imaging Report ---
Indication: Acute renal failure Technique: Grayscale and duplex images of the kidneys, retroperitoneum, and bladder were obtained. Comparison: none Findings: Right kidney measures 10.1 cm in length. Left kidney measures 9.9 cm in length. Both kidneys demonstrate normal echogenicity. No hydronephrosis. The right kidney demonstrates a small cyst. No other focal abnormality. Normal inferior vena cava. Bladder is empty, contains a Ordaz catheter. There is a left pleural effusion demonstrated. Trace ascites fluid is demonstrated. Impression: Negative for hydronephrosis Trace ascites Left pleural fluid incidentally demonstrated Incidental finding small right renal cyst.
--- NOTE | 2017-04-22 19:58 | General Progress Note ---
Assessment/Plan Assessment/Plan chf aib rvr acute kidney injury a cute tubular necrosis aneimia diabetes gfastroparesis better uti per id doingbetter dc planing. Subjective Date patient seen: Apr 22, 2017 Time patient seen: 19:56 Constitutional: Reports: no symptoms Allergies: Coded Allergies: MILK CONTAINING PRODUCTS (Verified Allergy, Unknown, 04/20/17) Lactose Intolerant TRAMADOL (Verified Allergy, Unknown, 04/19/17) Subjective feels ill but better no fevernochjiolls Objective Last 24 Hour Vital Signs Date Time Temp Pulse Resp B/P (MAP) Pulse Ox O2 Delivery O2 Flow Rate FiO2 04/22/17 16:00 96.9 100 18 103/62 100 Nasal Cannula 2.0 04/22/17 16:00 52 04/22/17 12:00 97.0 64 20 132/74 97 Nasal Cannula 2.0 04/22/17 12:00 39 04/22/17 11:02 65 18 96 Nasal Cannula 2.0 28 04/22/17 11:02 65 18 96 Nasal Cannula 2.0 28 04/22/17 11:02 Nasal Cannula 2.0 28 04/22/17 11:02 95 Nasal Cannula 2.0 28 04/22/17 09:34 54 144/76 04/22/17 09:34 54 144/76 04/22/17 08:00 109 04/22/17 08:00 97.7 54 20 144/76 94 Room Air 04/22/17 04:34 73 04/22/17 04:00 96.6 76 20 122/72 Nasal Cannula 04/22/17 00:00 96.1 73 20 116/71 100 Room Air 04/21/17 23:55 55 04/21/17 21:38 61 22 96 Nasal Cannula 2.0 28 04/21/17 21:38 62 22 97 Nasal Cannula 2.0 28 04/21/17 21:00 58 100/58 04/21/17 20:39 Nasal Cannula 2.0 28 04/21/17 20:39 96 Nasal Cannula 2.0 28 04/21/17 20:00 96.6 82 22 100/58 Nasal Cannula 04/21/17 20:00 99 Nasal Cannula 2.0 04/21/17 19:57 75 Intake and Output 04/22/17 04/23/17 19:00 07:00 Intake Total 240 ml Output Total 200 ml Balance 40 ml Intake Oral 240 ml Output Urine Total 200 ml Laboratory Tests 04/22/17 08:00: White Blood Count 10.9H, Red Blood Count 3.97L, Hemoglobin 11.8L, Hematocrit 37.9, Mean Corpuscular Volume 95, Mean Corpuscular Hemoglobin 29.7, Mean Corpuscular Hemoglobin Concent 31.2L, Red Cell Distribution Width 14.5, Platelet Count 254, Mean Platelet Volume 8.8, Neutrophils (%) (Auto) , Lymphocytes (%) (Auto) , Monocytes (%) (Auto) , Eosinophils (%) (Auto) , Basophils (%) (Auto) , Differential Total Cells Counted 100, Neutrophils % ( Manual) 89H, Lymphocytes % (Manual) 6L, Monocytes % (Manual) 5, Eosinophils % ( Manual) 0, Basophils % (Manual) 0, Band Neutrophils 0, Platelet Estimate Adequate, Platelet Morphology Normal, Hypochromasia 2+, Sodium Level 137, Potassium Level 5.4H, Chloride Level 100, Carbon Dioxide Level 27, Anion Gap 10 , Blood Urea Nitrogen 52H, Creatinine 2.5H, Estimat Glomerular Filtration Rate , Glucose Level 177H, Calcium Level 9.2, Calcium (Send out) [Pending], Total Bilirubin 1.7H, Direct Bilirubin 1.3H, Aspartate Amino Transf (AST/SGOT) 40H, Alanine Aminotransferase (ALT/SGPT) 33, Alkaline Phosphatase 90, Troponin I 0.035, Total Protein 7.8, Albumin 3.3L, Globulin 4.5, Albumin/Globulin Ratio 0.7L, Serotonin [Pending], Parathyroid Hormone (Intact) [Pending] Height (Feet): 5 Height (Inches): 3.00 Weight (Pounds): 192 General Appearance: WD/WN Neck: non-tender Cardiovascular: normal rate, regular rhythm, no JVD Respiratory/Chest: lungs clear HORACE FONTAINE Apr 22, 2017 19:58
--- NOTE | 2017-04-22 21:08 | Cardiology Progress Note ---
Assessment/Plan Assessment/Plan 1. Chronic atrial fibrillation, continue with Eliquis. 2. Dilated cardiomyopathy with LVEF at 20%, global LV hypokinesia, ? ischemic CM , ? prior cardiac cath history. Continue hydralazine and Isordil, would switch atenolol to coreg, not a suitable candidate for aldactone therapy. 3. Slight elevation of troponin I level. This could be secondary to non-ST elevation myocardial infarction versus troponin leak due to myocarditis vs CKD. Will continue conservative management. Subjective Subjective Atrial fibrillation with slow ventricular response at 52. Objective Last 24 Hour Vital Signs Date Time Temp Pulse Resp B/P (MAP) Pulse Ox O2 Delivery O2 Flow Rate FiO2 04/22/17 16:00 96.9 100 18 103/62 100 Nasal Cannula 2.0 04/22/17 16:00 52 04/22/17 12:00 97.0 64 20 132/74 97 Nasal Cannula 2.0 04/22/17 12:00 39 04/22/17 11:02 65 18 96 Nasal Cannula 2.0 28 04/22/17 11:02 65 18 96 Nasal Cannula 2.0 28 04/22/17 11:02 Nasal Cannula 2.0 28 04/22/17 11:02 95 Nasal Cannula 2.0 28 04/22/17 09:34 54 144/76 04/22/17 09:34 54 144/76 04/22/17 08:00 109 04/22/17 08:00 97.7 54 20 144/76 94 Room Air 04/22/17 04:34 73 04/22/17 04:00 96.6 76 20 122/72 Nasal Cannula 04/22/17 00:00 96.1 73 20 116/71 100 Room Air 04/21/17 23:55 55 04/21/17 21:38 61 22 96 Nasal Cannula 2.0 28 04/21/17 21:38 62 22 97 Nasal Cannula 2.0 28 Intake and Output 04/22/17 04/23/17 19:00 07:00 Intake Total 240 ml Output Total 200 ml Balance 40 ml Intake Oral 240 ml Output Urine Total 200 ml 2D Echo: LVEF at 20%, global LV hypokinesia, mod MR, RVSP 61 mmHg c/w pul. HTN Laboratory Tests Test 04/22/17 08:00 White Blood Count 10.9 K/UL (4.8-10.8) H Red Blood Count 3.97 M/UL (4.20-5.40) L Hemoglobin 11.8 G/DL (12.0-16.0) L Hematocrit 37.9 % (37.0-47.0) Mean Corpuscular Volume 95 FL (80-99) Mean Corpuscular Hemoglobin 29.7 PG (27.0-31.0) Mean Corpuscular Hemoglobin Concent 31.2 G/DL (32.0-36.0) L Red Cell Distribution Width 14.5 % (11.6-14.8) Platelet Count 254 K/UL (150-450) Mean Platelet Volume 8.8 FL (6.5-10.1) Neutrophils (%) (Auto) % (45.0-75.0) Lymphocytes (%) (Auto) % (20.0-45.0) Monocytes (%) (Auto) % (1.0-10.0) Eosinophils (%) (Auto) % (0.0-3.0) Basophils (%) (Auto) % (0.0-2.0) Differential Total Cells Counted 100 Neutrophils % (Manual) 89 % (45-75) H Lymphocytes % (Manual) 6 % (20-45) L Monocytes % (Manual) 5 % (1-10) Eosinophils % (Manual) 0 % (0-3) Basophils % (Manual) 0 % (0-2) Band Neutrophils 0 % (0-8) Platelet Estimate Adequate Platelet Morphology Normal Hypochromasia 2+ Sodium Level 137 MMOL/L (136-145) Potassium Level 5.4 MMOL/L (3.5-5.1) H Chloride Level 100 MMOL/L (98-107) Carbon Dioxide Level 27 MMOL/L (21-32) Anion Gap 10 mmol/L (5-15) Blood Urea Nitrogen 52 mg/dL (7-18) H Creatinine 2.5 MG/DL (0.55-1.30) H Estimat Glomerular Filtration Rate mL/min (>60) Glucose Level 177 MG/DL (74-106) H Calcium Level 9.2 MG/DL (8.5-10.1) Calcium (Send out) Pending Total Bilirubin 1.7 MG/DL (0.2-1.0) H Direct Bilirubin 1.3 MG/DL (0.0-0.3) H Aspartate Amino Transf (AST/SGOT) 40 U/L (15-37) H Alanine Aminotransferase (ALT/SGPT) 33 U/L (12-78) Alkaline Phosphatase 90 U/L (46-116) Troponin I 0.035 ng/mL (0.000-0.056) Total Protein 7.8 G/DL (6.4-8.2) Albumin 3.3 G/DL (3.4-5.0) L Globulin 4.5 g/dL Albumin/Globulin Ratio 0.7 (1.0-2.7) L Serotonin Pending Parathyroid Hormone (Intact) Pending Microbiology Date/Time Source Procedure Growth Status 04/20/17 00:44 Nasal Nares MRSA Culture - Final NO METHICILLIN RESISTANT STAPH AUREUS... Complete 04/20/17 00:44 Rectum VRE Culture - Final NO VANCOMYCIN RESISTANT ENTEROCOCCUS ... Complete Objective GENERAL: The patient is a very unfortunate 86-year-old female, seen in Cardiology consultation at the request of Dr. Mathew. She is currently in mild respiratory distress, awake and alert. The patient shows wheezing. HEENT: Atraumatic and normocephalic. Anicteric. Pupils are equal, round, and reactive to light and accommodation. Extraocular muscles intact. NECK: JVP cannot be assessed, as she is lying down. CARDIOVASCULAR: Normal S1 and S2. Irregularly irregular rhythm. A 2/6 mid systolic murmur at the left sternal border. PMI is at fourth intercostal space in the midclavicular line. LUNGS: There is bilateral diffuse rhonchi. ABDOMEN: Soft, nontender, and nondistended. No hepatosplenomegaly. Positive bowel sounds. EXTREMITIES: No evidence of edema, clubbing, or cyanosis. MAGALIS AVALOS Apr 22, 2017 21:08
[2017-04-22] MEDS: Sennosides 8.6mg ORAL SCH (22:12)
[2017-04-23] VITALS: BP 125/71
[2017-04-23] MEDS: Albuterol 90mcg Inhaler 8gm INH PRN ×2 (01:40→07:48)
[2017-04-23] MEDS ORDERED: Albuterol/Ipratropium 3ml neb HHN ONE (02:00)
[2017-04-23] MEDS ORDERED: Albuterol/Ipratropium 3ml neb HHN PRN (02:15)
[2017-04-23 04:00] VITALS: BP 119/77
[2017-04-23] MEDS: ceFAZolin 0.5gm in D5W 55ml IV SCH (04:26)
[2017-04-23] MEDS: sitaGLIPtin 25mg tab ORAL SCH (05:58)
[2017-04-23] MEDS: Solu-MEDROL 40mg Inj IVP SCH ×2 (05:58→14:38)
[2017-04-23 06:32] LABS: MEAN CORPUSCULAR HEMOGLOBIN 28.7 PG (27.0-31.0); MEAN CORPUSCULAR HGB CONC 30.5 G/DL (32.0-36.0); MEAN CORPUSCULAR VOLUME 94 FL (80-99); PLATELET COUNT 252 K/UL (150-450); RED BLOOD COUNT 4.24 M/UL (4.20-5.40); RED CELL DISTRIBUTION WIDTH 14.3 % (11.6-14.8); WHITE BLOOD COUNT 10.7 K/UL (4.8-10.8)
[2017-04-23 07:04] LABS: ALANINE AMINOTRANSFERASE 35 U/L (12-78); ALBUMIN/GLOBULIN RATIO 0.6 (1.0-2.7); ANION GAP 14 mmol/L (5-15); ASPARTATE AMINO TRANSFERASE 63 U/L (15-37); CALCIUM 9.5 MG/DL (8.5-10.1); CARBON DIOXIDE 23 MMOL/L (21-32); CHLORIDE 99 MMOL/L (98-107); CREATININE 2.7 MG/DL (0.55-1.30); IRON 20 ug/dL (50-175); POTASSIUM 5.4 MMOL/L (3.5-5.1); SODIUM 136 MMOL/L (136-145); TOTAL IRON BINDING CAPACITY 279 ug/dL (250-450); TOTAL PROTEIN 8.3 G/DL (6.4-8.2)
[2017-04-23 07:07] LABS: BILIRUBIN,DIRECT 1.7 MG/DL (0.0-0.3)
[2017-04-23] MEDS: Qvar 40mcg Inhaler 6.8 gm INH SCH ×2 (07:47→21:32)
[2017-04-23 08:00] VITALS: BP 120/81
[2017-04-23 08:45] LABS: KETONES,URINE 1+ (NEGATIVE); LEUKOCYTE ESTERASE ,URINE 3+ (NEGATIVE); NITRITE,URINE POSITIVE (NEGATIVE); PH,URINE 5 (4.5-8.0); PROTEIN,URINE 4+ (NEGATIVE); UROBILINOGEN,URINE 4 MG/DL (0.0-1.0)
[2017-04-23 08:47] LABS: APPEARANCE,URINE CLOUDY
[2017-04-23 08:48] LABS: BACTERIA,URINE FEW /HPF; ICTOTEST NEGATIVE; RBC,URINE TNTC /HPF (0 - 2); SQUAMOUS EPITHELIAL CELL,UR FEW /LPF (NONE/OCC)
[2017-04-23] MEDS: Levemir Flexpen SUBQ SCH ×2 (09:00→23:16)
[2017-04-23] MEDS: Docusate 100mg cap ORAL SCH ×2 (09:22→18:44)
[2017-04-23] MEDS: Lactobacillus-GG tablet ORAL SCH ×2 (09:22→18:44)
[2017-04-23] MEDS: Furosemide 40mg tab ORAL SCH (09:22)
[2017-04-23] MEDS: Eliquis 2.5mg tablet ORAL SCH ×2 (09:23→18:44)
--- NOTE | 2017-04-23 09:55 | Infectious Diseases Prog Note ---
Assessment/Plan Assessment/Plan A; R knee prosthesis infection Atrial fibrillation DM Obesity Degenerative joint disease Diarrhea, resolved Hematuria P: Change Ancef to Cefepime, continue Rifampin will f/u UC Subjective ROS Limited/Unobtainable: No Constitutional: Reports: no symptoms Respiratory: Reports: dry cough Cardiovascular: Reports: no symptoms Gastrointestinal/Abdominal: Reports: no symptoms Genitourinary: Reports: no symptoms Allergies: Coded Allergies: MILK CONTAINING PRODUCTS (Verified Allergy, Unknown, 04/20/17) Lactose Intolerant TRAMADOL (Verified Allergy, Unknown, 04/19/17) Objective Vital Signs Last 24 Hour Vital Signs Date Time Temp Pulse Resp B/P (MAP) Pulse Ox O2 Delivery O2 Flow Rate FiO2 04/23/17 09:23 96 120/81 04/23/17 08:00 97.0 96 20 120/81 95 Nasal Cannula 2.0 04/23/17 07:48 Nasal Cannula 2.0 28 04/23/17 07:48 52 20 99 Nasal Cannula 2.0 04/23/17 07:47 52 20 99 Nasal Cannula 2.0 04/23/17 07:45 52 20 99 Nasal Cannula 2.0 28 04/23/17 07:44 99 Nasal Cannula 2.0 28 04/23/17 04:12 92 04/23/17 04:00 98 Nasal Cannula 2.0 04/23/17 04:00 96.0 101 20 119/77 98 Nasal Cannula 04/23/17 01:41 102 20 95 Nasal Cannula 2.0 04/23/17 01:41 108 24 97 Nasal Cannula 04/23/17 00:16 88 04/23/17 00:00 97.0 86 22 125/71 100 Nasal Cannula 04/23/17 00:00 99 Nasal Cannula 2.0 04/22/17 22:30 72 16 97 Nasal Cannula 2.0 28 04/22/17 22:28 70 16 95 Nasal Cannula 2.0 04/22/17 22:13 77 133/73 04/22/17 20:04 70 04/22/17 20:00 96.8 89 20 133/73 99 Room Air 04/22/17 20:00 98 Nasal Cannula 2.0 04/22/17 19:35 20 04/22/17 19:30 94 Nasal Cannula 2.0 28 04/22/17 19:30 Nasal Cannula 2.0 28 04/22/17 16:00 96.9 100 18 103/62 100 Nasal Cannula 2.0 04/22/17 16:00 52 04/22/17 12:00 97.0 64 20 132/74 97 Nasal Cannula 2.0 04/22/17 12:00 39 04/22/17 11:02 65 18 96 Nasal Cannula 2.0 28 04/22/17 11:02 65 18 96 Nasal Cannula 2.0 28 04/22/17 11:02 Nasal Cannula 2.0 28 04/22/17 11:02 95 Nasal Cannula 2.0 28 Height (Feet): 5 Height (Inches): 3.00 Weight (Pounds): 192 General Appearance: no acute distress HEENT: mucous membranes moist Respiratory/Chest: lungs clear Cardiovascular: normal rate Abdomen: soft, non tender Extremities: other - edema of legs Neurologic/Psychiatric: alert, oriented x 3, responsive Laboratory Tests Test 04/23/17 05:00 04/23/17 05:55 Urine Color Brown Urine Appearance Cloudy Urine pH 5 (4.5-8.0) Urine Specific [place] 1.020 (1.005-1.035) Urine Protein 4+ (NEGATIVE) H Urine Glucose (UA) Negative (NEGATIVE) Urine Ketones 1+ (NEGATIVE) H Urine Occult Blood 5+ (NEGATIVE) H Urine Nitrite Positive (NEGATIVE) H Urine Bilirubin 1+ (NEGATIVE) H Urine Ictotest Negative Urine Urobilinogen 4 MG/DL (0.0-1.0) H Urine Leukocyte Esterase 3+ (NEGATIVE) H Urine RBC Tntc /HPF (0 - 2) H Urine WBC 10-15 /HPF (0 - 2) H Urine Squamous Epithelial Cells Few /LPF (NONE/OCC) Urine Bacteria Few /HPF (NONE) White Blood Count 10.7 K/UL (4.8-10.8) Red Blood Count 4.24 M/UL (4.20-5.40) Hemoglobin 12.2 G/DL (12.0-16.0) Hematocrit 39.9 % (37.0-47.0) Mean Corpuscular Volume 94 FL (80-99) Mean Corpuscular Hemoglobin 28.7 PG (27.0-31.0) Mean Corpuscular Hemoglobin Concent 30.5 G/DL (32.0-36.0) L Red Cell Distribution Width 14.3 % (11.6-14.8) Platelet Count 252 K/UL (150-450) Mean Platelet Volume 9.0 FL (6.5-10.1) Neutrophils (%) (Auto) % (45.0-75.0) Lymphocytes (%) (Auto) % (20.0-45.0) Monocytes (%) (Auto) % (1.0-10.0) Eosinophils (%) (Auto) % (0.0-3.0) Basophils (%) (Auto) % (0.0-2.0) Sodium Level 136 MMOL/L (136-145) Potassium Level 5.4 MMOL/L (3.5-5.1) H Chloride Level 99 MMOL/L (98-107) Carbon Dioxide Level 23 MMOL/L (21-32) Anion Gap 14 mmol/L (5-15) Blood Urea Nitrogen 63 mg/dL (7-18) H Creatinine 2.7 MG/DL (0.55-1.30) H Estimat Glomerular Filtration Rate mL/min (>60) Glucose Level 92 MG/DL (74-106) Calcium Level 9.5 MG/DL (8.5-10.1) Iron Level 20 ug/dL (50-175) L Total Iron Binding Capacity 279 ug/dL (250-450) Percent Iron Saturation 7 % (15-50) L Unsaturated Iron Binding 259 ug/dL (112-346) Total Bilirubin 2.2 MG/DL (0.2-1.0) H Direct Bilirubin 1.7 MG/DL (0.0-0.3) H Aspartate Amino Transf (AST/SGOT) 63 U/L (15-37) H Alanine Aminotransferase (ALT/SGPT) 35 U/L (12-78) Alkaline Phosphatase 95 U/L (46-116) Total Protein 8.3 G/DL (6.4-8.2) H Albumin 3.2 G/DL (3.4-5.0) L Globulin 5.1 g/dL Albumin/Globulin Ratio 0.6 (1.0-2.7) L Current Medications Medications (Trade) Dose Ordered Sig/Edda Route PRN Reason Start Time Stop Time Status Last Admin Dose Admin Acetaminophen/ Hydrocodone Bitart ([place] 5/325) 1 tab Q6H PRN ORAL For Pain 04/20/17 14:00 04/27/17 13:59 Albuterol Sulfate (Proventil MDI) 1 puff Q4H PRN INH Shortness of Breath 04/20/17 20:15 05/20/17 20:14 04/23/17 07:48 Apixaban (Eliquis) 5 mg BID ORAL 04/21/17 09:00 05/21/17 08:59 04/23/17 09:23 Atenolol (Tenormin) 50 mg Q12HR ORAL 04/20/17 21:00 05/20/17 20:59 04/23/17 09:23 Beclomethasone Dipropionate (Qvar 40 Inhaler) 1 puff BIDRT INH 04/21/17 13:00 05/21/17 12:59 04/23/17 07:47 Bisacodyl (Dulcolax) 10 mg DAILYPRN PRN RECTAL Constipation 04/20/17 16:00 05/20/17 15:59 Cefazolin Sodium 0.5 gm/Dextrose 55 ml @ 110 mls/hr Q12HR@0400,1600 IV 04/21/17 04:00 04/28/17 03:59 04/23/17 04:26 Diphenoxylate HCl/ Atropine (Lomotil) 1 mg BID PRN ORAL Diarrhea 04/20/17 18:00 05/20/17 17:59 04/21/17 09:09 Docusate Sodium (Colace) 100 mg TWICE A DAY ORAL 04/20/17 18:00 05/20/17 17:59 04/23/17 09:22 Furosemide (Lasix) 40 mg DAILY ORAL 04/21/17 09:00 05/21/17 08:59 04/23/17 09:22 Insulin Detemir (Levemir) 8 units BEDTIME SUBQ 04/20/17 21:00 05/20/17 20:59 04/22/17 22:15 Insulin Detemir (Levemir) 16 units DAILY SUBQ 04/21/17 09:00 05/21/17 08:59 04/22/17 10:20 Iron Sucrose 100 mg/Sodium Chloride 60 ml @ 240 mls/hr BEDTIME IV 04/23/17 21:00 04/27/17 21:14 Lactobacillus Acidophilus (Culturelle) 1 tab TWICE A DAY ORAL 04/20/17 18:00 05/20/17 17:59 04/23/17 09:22 Magnesium Hydroxide (Mom) 30 ml DAILYPRN PRN ORAL Constipation 04/20/17 16:00 05/20/17 15:59 Methylprednisolone Sodium Succinate (Solu-MEDROL) 40 mg EVERY 8 HOURS IVP 04/20/17 22:00 05/20/17 21:59 04/23/17 05:58 Metoclopramide HCl (Reglan) 5 mg TID ORAL 04/21/17 13:00 05/21/17 12:59 04/23/17 09:22 Multivitamins (Multivitamins) 1 tab DAILY ORAL 04/21/17 09:00 05/21/17 08:59 04/23/17 09:22 Ondansetron HCl (Zofran) 4 mg THREE TIMES A DAY ORAL 04/20/17 13:00 05/20/17 12:59 04/23/17 09:22 Rifampin (Rifadin) 300 mg EVERY 12 HOURS ORAL 04/20/17 21:00 05/20/17 20:59 04/23/17 09:22 Sennosides (Senokot) 17.2 mg QHS ORAL 04/20/17 21:00 05/20/17 20:59 04/22/17 22:12 Sitagliptin Phosphate (Januvia) 25 mg ACBREAKFAST ORAL 04/21/17 06:30 05/21/17 06:29 04/23/17 05:58 TIMOTHY BHATIA Apr 23, 2017 09:55
[2017-04-23] MEDS ORDERED: Cefepime HCl 1 GM in D5W 55 ML IVPB SCH (11:00)
--- NOTE | 2017-04-23 11:09 | Diagnostic Imaging Report ---
Indication: Abnormal liver function tests, renal function tests, abdominal pain Technique: Erwin-scale and duplex images of the upper abdomen were obtained Comparison: Reference made to CT abdomen and pelvis 04/20/2017 Findings: There is trace ascites. There are bilateral pleural effusions. Gallbladder is surgically absent. Common bile duct measures 8 mm in diameter. No intrahepatic biliary ductal dilatation. Liver demonstrates diffusely increased echogenicity, consistent with diffuse hepatocellular disease, most likely fatty change. There is equivocal slight surface nodularity. Portal vein and hepatic veins are patent. Pancreas is unremarkable. Spleen is unremarkable. Left kidney measures 9.8 cm in length. Right kidney measures 10.4 cm length. Both kidneys demonstrate normal echogenicity. There is no hydronephrosis. There are bilateral renal cysts incidentally noted . Non-aneurysmal abdominal aorta . Impression: Surgically absent gallbladder. Mildly ectatic common bile duct is likely related age and postcholecystectomy state. Downstream obstructive process not completely excluded, however. Consider further evaluation with MRCP if clinically indicated Liver demonstrates diffusely increased echogenicity, consistent with diffuse hepatocellular disease, consistent with fatty change described on recent CT. Equivocal slight hepatic surface nodularity in the left lobe, could indicate early cirrhotic changes Trace ascites Bilateral pleural effusions Incidental finding bilateral renal cysts
--- NOTE | 2017-04-23 11:54 | Nephrology Progress Note ---
Assessment/Plan Problem List: (1) CKD (chronic kidney disease) (2) CHF exacerbation (3) DM (diabetes mellitus) (4) HTN (hypertension) (5) ARF (acute renal failure) Assessment: secondary to diuretics ? cardiorenal ? R/O obstruction Assessment Renal function stable Plan continue with diuretics check PTH follow BMP Discussed with pt and nicole Subjective Subjective feels better Objective Objective Last 24 Hour Vital Signs Date Time Temp Pulse Resp B/P (MAP) Pulse Ox O2 Delivery O2 Flow Rate FiO2 04/23/17 09:23 96 120/81 04/23/17 08:00 97.0 96 20 120/81 95 Nasal Cannula 2.0 04/23/17 07:48 Nasal Cannula 2.0 28 04/23/17 07:48 52 20 99 Nasal Cannula 2.0 28 04/23/17 07:47 52 20 99 Nasal Cannula 2.0 28 04/23/17 07:45 52 20 99 Nasal Cannula 2.0 28 04/23/17 07:44 99 Nasal Cannula 2.0 28 04/23/17 04:12 92 04/23/17 04:00 98 Nasal Cannula 2.0 04/23/17 04:00 96.0 101 20 119/77 98 Nasal Cannula 04/23/17 01:41 102 20 95 Nasal Cannula 2.0 04/23/17 01:41 108 24 97 Nasal Cannula 04/23/17 00:16 88 04/23/17 00:00 97.0 86 22 125/71 100 Nasal Cannula 04/23/17 00:00 99 Nasal Cannula 2.0 04/22/17 22:30 72 16 97 Nasal Cannula 2.0 04/22/17 22:28 70 16 95 Nasal Cannula 2.0 04/22/17 22:13 77 133/73 04/22/17 20:04 70 04/22/17 20:00 96.8 89 20 133/73 99 Room Air 04/22/17 20:00 98 Nasal Cannula 2.0 04/22/17 19:35 20 04/22/17 19:30 94 Nasal Cannula 2.0 28 04/22/17 19:30 Nasal Cannula 2.0 28 04/22/17 16:00 96.9 100 18 103/62 100 Nasal Cannula 2.0 04/22/17 16:00 52 04/22/17 12:00 97.0 64 20 132/74 97 Nasal Cannula 2.0 04/22/17 12:00 39 Laboratory Tests 04/23/17 05:00: Urine Color Brown, Urine Appearance Cloudy, Urine pH 5, Urine Specific [place] 1.020, Urine Protein 4+H, Urine Glucose (UA) Negative, Urine Ketones 1+H, Urine Occult Blood 5+H, Urine Nitrite PositiveH, Urine Bilirubin 1+H, Urine Ictotest Negative, Urine Urobilinogen 4H, Urine Leukocyte Esterase 3+H, Urine RBC TntcH, Urine WBC 10-15H, Urine Squamous Epithelial Cells Few, Urine Bacteria Few 04/23/17 05:55: White Blood Count 10.7, Red Blood Count 4.24, Hemoglobin 12.2, Hematocrit 39.9, Mean Corpuscular Volume 94, Mean Corpuscular Hemoglobin 28.7, Mean Corpuscular Hemoglobin Concent 30.5L, Red Cell Distribution Width 14.3, Platelet Count 252, Mean Platelet Volume 9.0, Neutrophils (%) (Auto) , Lymphocytes (%) (Auto) , Monocytes (%) (Auto) , Eosinophils (%) (Auto) , Basophils (%) (Auto) , Sodium Level 136, Potassium Level 5.4H, Chloride Level 99, Carbon Dioxide Level 23, Anion Gap 14, Blood Urea Nitrogen 63H, Creatinine 2.7H, Estimat Glomerular Filtration Rate , Glucose Level 92, Calcium Level 9.5, Iron Level 20L, Total Iron Binding Capacity 279, Percent Iron Saturation 7L, Unsaturated Iron Binding 259, Total Bilirubin 2.2H, Direct Bilirubin 1.7H, Aspartate Amino Transf (AST/ SGOT) 63H, Alanine Aminotransferase (ALT/SGPT) 35, Alkaline Phosphatase 95, Total Protein 8.3H, Albumin 3.2L, Globulin 5.1, Albumin/Globulin Ratio 0.6L Height (Feet): 5 Height (Inches): 3.00 Weight (Pounds): 192 Cardiovascular: normal rate Respiratory/Chest: lungs clear Extremities: trace edema VLADIMIR BHATIA Apr 23, 2017 11:54
[2017-04-23 12:00] VITALS: BP 117/77
[2017-04-23 12:26] LABS: CALCIUM 9.2 mg/dL (8.7-10.3); PTH INTACT 119 pg/mL (15-65)
--- NOTE | 2017-04-23 13:32 | GI Progress Note ---
Assessment/Plan Problems: (1) DM (diabetes mellitus) ICD Codes: E11.9 - Type 2 diabetes mellitus without complications SNOMED: 48618431 (2) Gastroparesis ICD Codes: K31.84 - Gastroparesis SNOMED: 835515705 (3) Nausea & vomiting ICD Codes: R11.2 - Nausea with vomiting, unspecified SNOMED: 91636265 (4) Hyperbilirubinemia ICD Codes: E80.6 - Other disorders of bilirubin metabolism SNOMED: 94999299 (5) Anemia ICD Codes: D64.9 - Anemia, unspecified SNOMED: 514495258 Status: stable Status Narrative Discussed with Dr. Ordoñez. Assessment/Plan CT AP reviewed >> see full report - R side pleural effusion - diverticulosis defer GI procedures given elevated troponin levels >> symptomatic treatment at this time OB stool r/o GI bleed monitor H&H, prn transfusions bowel regime >> colace + senokot low dose reglan ppi fu labs, LFTs pt on Eliquis The patient was seen and examined at bedside and all new and available data was reviewed in the patients chart. I agree with the above findings, impression and plan. (Patient seen earlier today. Signature stamp does not reflect patient encounter time.). - Malissa Ordoñez MD Subjective Gastrointestinal/Abdominal: Reports: no symptoms Objective Last 24 Hour Vital Signs Date Time Temp Pulse Resp B/P (MAP) Pulse Ox O2 Delivery O2 Flow Rate FiO2 04/23/17 12:00 97.2 100 20 117/77 100 Nasal Cannula 2.0 04/23/17 09:23 96 120/81 04/23/17 08:00 97.0 96 20 120/81 95 Nasal Cannula 2.0 04/23/17 07:48 Nasal Cannula 2.0 28 04/23/17 07:48 52 20 99 Nasal Cannula 2.0 28 04/23/17 07:47 52 20 99 Nasal Cannula 2.0 28 04/23/17 07:45 52 20 99 Nasal Cannula 2.0 28 04/23/17 07:44 99 Nasal Cannula 2.0 28 04/23/17 04:12 92 04/23/17 04:00 98 Nasal Cannula 2.0 04/23/17 04:00 96.0 101 20 119/77 98 Nasal Cannula 04/23/17 01:41 102 20 95 Nasal Cannula 2.0 28 04/23/17 01:41 108 24 97 Nasal Cannula 28 04/23/17 00:16 88 04/23/17 00:00 97.0 86 22 125/71 100 Nasal Cannula 04/23/17 00:00 99 Nasal Cannula 2.0 04/22/17 22:30 72 16 97 Nasal Cannula 2.0 28 04/22/17 22:28 70 16 95 Nasal Cannula 2.0 28 04/22/17 22:13 77 133/73 04/22/17 20:04 70 04/22/17 20:00 96.8 89 20 133/73 99 Room Air 04/22/17 20:00 98 Nasal Cannula 2.0 04/22/17 19:35 20 04/22/17 19:30 94 Nasal Cannula 2.0 28 04/22/17 19:30 Nasal Cannula 2.0 28 04/22/17 16:00 96.9 100 18 103/62 100 Nasal Cannula 2.0 04/22/17 16:00 52 Intake and Output 04/22/17 04/23/17 19:00 07:00 Intake Total 240 ml Output Total 200 ml 200 ml Balance 40 ml -200 ml Intake Oral 240 ml Output Urine Total 200 ml 200 ml Laboratory Tests Test 04/23/17 05:00 04/23/17 05:55 Urine Color Brown Urine Appearance Cloudy Urine pH 5 (4.5-8.0) Urine Specific [place] 1.020 (1.005-1.035) Urine Protein 4+ (NEGATIVE) H Urine Glucose (UA) Negative (NEGATIVE) Urine Ketones 1+ (NEGATIVE) H Urine Occult Blood 5+ (NEGATIVE) H Urine Nitrite Positive (NEGATIVE) H Urine Bilirubin 1+ (NEGATIVE) H Urine Ictotest Negative Urine Urobilinogen 4 MG/DL (0.0-1.0) H Urine Leukocyte Esterase 3+ (NEGATIVE) H Urine RBC Tntc /HPF (0 - 2) H Urine WBC 10-15 /HPF (0 - 2) H Urine Squamous Epithelial Cells Few /LPF (NONE/OCC) Urine Bacteria Few /HPF (NONE) White Blood Count 10.7 K/UL (4.8-10.8) Red Blood Count 4.24 M/UL (4.20-5.40) Hemoglobin 12.2 G/DL (12.0-16.0) Hematocrit 39.9 % (37.0-47.0) Mean Corpuscular Volume 94 FL (80-99) Mean Corpuscular Hemoglobin 28.7 PG (27.0-31.0) Mean Corpuscular Hemoglobin Concent 30.5 G/DL (32.0-36.0) L Red Cell Distribution Width 14.3 % (11.6-14.8) Platelet Count 252 K/UL (150-450) Mean Platelet Volume 9.0 FL (6.5-10.1) Neutrophils (%) (Auto) % (45.0-75.0) Lymphocytes (%) (Auto) % (20.0-45.0) Monocytes (%) (Auto) % (1.0-10.0) Eosinophils (%) (Auto) % (0.0-3.0) Basophils (%) (Auto) % (0.0-2.0) Sodium Level 136 MMOL/L (136-145) Potassium Level 5.4 MMOL/L (3.5-5.1) H Chloride Level 99 MMOL/L (98-107) Carbon Dioxide Level 23 MMOL/L (21-32) Anion Gap 14 mmol/L (5-15) Blood Urea Nitrogen 63 mg/dL (7-18) H Creatinine 2.7 MG/DL (0.55-1.30) H Estimat Glomerular Filtration Rate mL/min (>60) Glucose Level 92 MG/DL (74-106) Calcium Level 9.5 MG/DL (8.5-10.1) Iron Level 20 ug/dL (50-175) L Total Iron Binding Capacity 279 ug/dL (250-450) Percent Iron Saturation 7 % (15-50) L Unsaturated Iron Binding 259 ug/dL (112-346) Total Bilirubin 2.2 MG/DL (0.2-1.0) H Direct Bilirubin 1.7 MG/DL (0.0-0.3) H Aspartate Amino Transf (AST/SGOT) 63 U/L (15-37) H Alanine Aminotransferase (ALT/SGPT) 35 U/L (12-78) Alkaline Phosphatase 95 U/L (46-116) Total Protein 8.3 G/DL (6.4-8.2) H Albumin 3.2 G/DL (3.4-5.0) L Globulin 5.1 g/dL Albumin/Globulin Ratio 0.6 (1.0-2.7) L Height (Feet): 5 Height (Inches): 3.00 Weight (Pounds): 192 General Appearance: WD/WN, no apparent distress, alert, overweight Cardiovascular: normal rate Respiratory/Chest: normal breath sounds, no respiratory distress Abdominal Exam: normal bowel sounds, non tender, soft Extremities: normal range of motion, non-tender Justina Rice N.P. Apr 23, 2017 13:32 MÓNICA ORDOÑEZ Apr 25, 2017 09:15
[2017-04-23 15:37] VITALS: BP 116/86
--- NOTE | 2017-04-23 18:02 | General Progress Note ---
Assessment/Plan Assessment/Plan chf aib rvr acute kidney injury a cute tubular necrosis aneimia diabetes gfastroparesis better uti per id doingbetter noted to be short of breaaath lijkely asthmatic bronchitis will giev atrovent and use xoponex make sure nto tachycardic and also give prednisone. Subjective Date patient seen: Apr 23, 2017 Time patient seen: 18:00 Constitutional: Reports: no symptoms Allergies: Coded Allergies: MILK CONTAINING PRODUCTS (Verified Allergy, Unknown, 04/20/17) Lactose Intolerant TRAMADOL (Verified Allergy, Unknown, 04/19/17) Subjective short of breath and wheezing Objective Last 24 Hour Vital Signs Date Time Temp Pulse Resp B/P (MAP) Pulse Ox O2 Delivery O2 Flow Rate FiO2 04/23/17 15:37 98.4 92 20 116/86 100 04/23/17 12:00 97.2 100 20 117/77 100 Nasal Cannula 2.0 04/23/17 09:23 96 120/81 04/23/17 08:00 97.0 96 20 120/81 95 Nasal Cannula 2.0 04/23/17 07:48 Nasal Cannula 2.0 28 04/23/17 07:48 52 20 99 Nasal Cannula 2.0 28 04/23/17 07:47 52 20 99 Nasal Cannula 2.0 28 04/23/17 07:45 52 20 99 Nasal Cannula 2.0 04/23/17 07:44 99 Nasal Cannula 2.0 28 04/23/17 04:12 92 04/23/17 04:00 98 Nasal Cannula 2.0 04/23/17 04:00 96.0 101 20 119/77 98 Nasal Cannula 04/23/17 01:41 102 20 95 Nasal Cannula 2.0 28 04/23/17 01:41 108 24 97 Nasal Cannula 28 04/23/17 00:16 88 04/23/17 00:00 97.0 86 22 125/71 100 Nasal Cannula 04/23/17 00:00 99 Nasal Cannula 2.0 04/22/17 22:30 72 16 97 Nasal Cannula 2.0 28 04/22/17 22:28 70 16 95 Nasal Cannula 2.0 04/22/17 22:13 77 133/73 04/22/17 20:04 70 04/22/17 20:00 96.8 89 20 133/73 99 Room Air 04/22/17 20:00 98 Nasal Cannula 2.0 04/22/17 19:35 20 04/22/17 19:30 94 Nasal Cannula 2.0 28 04/22/17 19:30 Nasal Cannula 2.0 28 Intake and Output 04/22/17 04/23/17 19:00 07:00 Intake Total 240 ml Output Total 200 ml 200 ml Balance 40 ml -200 ml Intake Oral 240 ml Output Urine Total 200 ml 200 ml Laboratory Tests 04/23/17 05:00: Urine Color Brown, Urine Appearance Cloudy, Urine pH 5, Urine Specific [place] 1.020, Urine Protein 4+H, Urine Glucose (UA) Negative, Urine Ketones 1+H, Urine Occult Blood 5+H, Urine Nitrite PositiveH, Urine Bilirubin 1+H, Urine Ictotest Negative, Urine Urobilinogen 4H, Urine Leukocyte Esterase 3+H, Urine RBC TntcH, Urine WBC 10-15H, Urine Squamous Epithelial Cells Few, Urine Bacteria Few 04/23/17 05:55: White Blood Count 10.7, Red Blood Count 4.24, Hemoglobin 12.2, Hematocrit 39.9, Mean Corpuscular Volume 94, Mean Corpuscular Hemoglobin 28.7, Mean Corpuscular Hemoglobin Concent 30.5L, Red Cell Distribution Width 14.3, Platelet Count 252, Mean Platelet Volume 9.0, Neutrophils (%) (Auto) , Lymphocytes (%) (Auto) , Monocytes (%) (Auto) , Eosinophils (%) (Auto) , Basophils (%) (Auto) , Sodium Level 136, Potassium Level 5.4H, Chloride Level 99, Carbon Dioxide Level 23, Anion Gap 14, Blood Urea Nitrogen 63H, Creatinine 2.7H, Estimat Glomerular Filtration Rate , Glucose Level 92, Calcium Level 9.5, Iron Level 20L, Total Iron Binding Capacity 279, Percent Iron Saturation 7L, Unsaturated Iron Binding 259, Total Bilirubin 2.2H, Direct Bilirubin 1.7H, Aspartate Amino Transf (AST/ SGOT) 63H, Alanine Aminotransferase (ALT/SGPT) 35, Alkaline Phosphatase 95, Total Protein 8.3H, Albumin 3.2L, Globulin 5.1, Albumin/Globulin Ratio 0.6L Height (Feet): 5 Height (Inches): 3.00 Weight (Pounds): 192 General Appearance: WD/WN Neck: non-tender Cardiovascular: no JVD Respiratory/Chest: other - has wheezing Abdomen: non tender HORACE FONTAINE Apr 23, 2017 18:02
[2017-04-23] MEDS ORDERED: Ipratropium 0.02% Inh Soln 2.5ml UD HHN SCH (19:00)
[2017-04-23 20:00] VITALS: BP 122/95
[2017-04-23] MEDS ORDERED: Levalbuterol Inh UD 1.25mg/0.5ml HHN SCH (20:00)
[2017-04-23] MEDS ORDERED: Iron Sucrose 100 MG in NS 55 ML IV SCH (21:00)
[2017-04-23] MEDS ORDERED: Albuterol 90mcg Inhaler 8gm INH PRN (21:30)
[2017-04-23] MEDS ORDERED: Norco 5mg/325mg tab ORAL PRN (21:30)
[2017-04-23] MEDS ORDERED: Lomotil 2.5mg tab ORAL PRN (21:30)
[2017-04-23] MEDS ORDERED: Milk of Magnesia 30ml Ud ORAL PRN (21:30)
[2017-04-23] MEDS: Iron Sucrose 100 MG in NS 55 ML IV SCH (23:15)
[2017-04-23] MEDS: Sennosides 8.6mg ORAL SCH (23:17)
--- NOTE | 2017-04-23 23:36 | Cardiology Progress Note ---
Assessment/Plan Assessment/Plan 1. Chronic atrial fibrillation, continue with Eliquis. 2. Dilated cardiomyopathy with LVEF at 20%, global LV hypokinesia, ? ischemic CM , ? prior cardiac cath history. Continue hydralazine and Isordil, would switch atenolol to coreg, not a suitable candidate for aldactone therapy. 3. Slight elevation of troponin I level. This could be secondary to non-ST elevation myocardial infarction versus troponin leak due to myocarditis vs CKD. Will continue conservative management. Subjective Subjective Atrial fibrillation with CVR at 75. Objective Last 24 Hour Vital Signs Date Time Temp Pulse Resp B/P (MAP) Pulse Ox O2 Delivery O2 Flow Rate FiO2 04/23/17 23:16 80 122/95 04/23/17 21:35 75 18 99 Nasal Cannula 2.0 28 04/23/17 21:32 75 18 99 Nasal Cannula 2.0 28 04/23/17 20:00 96.4 100 19 122/95 100 04/23/17 19:44 102 18 98 Nasal Cannula 2.0 04/23/17 19:32 98 Nasal Cannula 2.0 04/23/17 19:32 Nasal Cannula 2.0 04/23/17 19:32 103 16 98 Nasal Cannula 2.0 04/23/17 15:37 98.4 92 20 116/86 100 04/23/17 12:00 97.2 100 20 117/77 100 Nasal Cannula 2.0 04/23/17 09:23 96 120/81 04/23/17 08:00 97.0 96 20 120/81 95 Nasal Cannula 2.0 04/23/17 07:48 Nasal Cannula 2.0 04/23/17 07:48 52 20 99 Nasal Cannula 2.0 04/23/17 07:47 52 20 99 Nasal Cannula 2.0 04/23/17 07:45 52 20 99 Nasal Cannula 2.0 04/23/17 07:44 99 Nasal Cannula 2.0 04/23/17 04:12 92 04/23/17 04:00 98 Nasal Cannula 2.0 04/23/17 04:00 96.0 101 20 119/77 98 Nasal Cannula 04/23/17 01:41 102 20 95 Nasal Cannula 2.0 04/23/17 01:41 108 24 97 Nasal Cannula 04/23/17 00:16 88 04/23/17 00:00 97.0 86 22 125/71 100 Nasal Cannula 04/23/17 00:00 99 Nasal Cannula 2.0 Intake and Output 04/22/17 04/23/17 19:00 07:00 Intake Total 240 ml Output Total 200 ml 200 ml Balance 40 ml -200 ml Intake Oral 240 ml Output Urine Total 200 ml 200 ml 2D Echo: LVEF at 20%, global LV hypokinesia, mod MR, RVSP 61 mmHg c/w pul. HTN Laboratory Tests Test 04/23/17 05:00 04/23/17 05:55 Urine Color Brown Urine Appearance Cloudy Urine pH 5 (4.5-8.0) Urine Specific [place] 1.020 (1.005-1.035) Urine Protein 4+ (NEGATIVE) H Urine Glucose (UA) Negative (NEGATIVE) Urine Ketones 1+ (NEGATIVE) H Urine Occult Blood 5+ (NEGATIVE) H Urine Nitrite Positive (NEGATIVE) H Urine Bilirubin 1+ (NEGATIVE) H Urine Ictotest Negative Urine Urobilinogen 4 MG/DL (0.0-1.0) H Urine Leukocyte Esterase 3+ (NEGATIVE) H Urine RBC Tntc /HPF (0 - 2) H Urine WBC 10-15 /HPF (0 - 2) H Urine Squamous Epithelial Cells Few /LPF (NONE/OCC) Urine Bacteria Few /HPF (NONE) White Blood Count 10.7 K/UL (4.8-10.8) Red Blood Count 4.24 M/UL (4.20-5.40) Hemoglobin 12.2 G/DL (12.0-16.0) Hematocrit 39.9 % (37.0-47.0) Mean Corpuscular Volume 94 FL (80-99) Mean Corpuscular Hemoglobin 28.7 PG (27.0-31.0) Mean Corpuscular Hemoglobin Concent 30.5 G/DL (32.0-36.0) L Red Cell Distribution Width 14.3 % (11.6-14.8) Platelet Count 252 K/UL (150-450) Mean Platelet Volume 9.0 FL (6.5-10.1) Neutrophils (%) (Auto) % (45.0-75.0) Lymphocytes (%) (Auto) % (20.0-45.0) Monocytes (%) (Auto) % (1.0-10.0) Eosinophils (%) (Auto) % (0.0-3.0) Basophils (%) (Auto) % (0.0-2.0) Sodium Level 136 MMOL/L (136-145) Potassium Level 5.4 MMOL/L (3.5-5.1) H Chloride Level 99 MMOL/L (98-107) Carbon Dioxide Level 23 MMOL/L (21-32) Anion Gap 14 mmol/L (5-15) Blood Urea Nitrogen 63 mg/dL (7-18) H Creatinine 2.7 MG/DL (0.55-1.30) H Estimat Glomerular Filtration Rate mL/min (>60) Glucose Level 92 MG/DL (74-106) Calcium Level 9.5 MG/DL (8.5-10.1) Iron Level 20 ug/dL (50-175) L Total Iron Binding Capacity 279 ug/dL (250-450) Percent Iron Saturation 7 % (15-50) L Unsaturated Iron Binding 259 ug/dL (112-346) Total Bilirubin 2.2 MG/DL (0.2-1.0) H Direct Bilirubin 1.7 MG/DL (0.0-0.3) H Aspartate Amino Transf (AST/SGOT) 63 U/L (15-37) H Alanine Aminotransferase (ALT/SGPT) 35 U/L (12-78) Alkaline Phosphatase 95 U/L (46-116) Total Protein 8.3 G/DL (6.4-8.2) H Albumin 3.2 G/DL (3.4-5.0) L Globulin 5.1 g/dL Albumin/Globulin Ratio 0.6 (1.0-2.7) L Objective GENERAL: The patient is a very unfortunate 86-year-old female, seen in Cardiology consultation at the request of Dr. Mathew. She is currently in mild respiratory distress, awake and alert. The patient shows wheezing. HEENT: Atraumatic and normocephalic. Anicteric. Pupils are equal, round, and reactive to light and accommodation. Extraocular muscles intact. NECK: JVP cannot be assessed, as she is lying down. CARDIOVASCULAR: Normal S1 and S2. Irregularly irregular rhythm. A 2/6 mid systolic murmur at the left sternal border. PMI is at fourth intercostal space in the midclavicular line. LUNGS: There is bilateral diffuse rhonchi. ABDOMEN: Soft, nontender, and nondistended. No hepatosplenomegaly. Positive bowel sounds. EXTREMITIES: No evidence of edema, clubbing, or cyanosis. MAGALIS AVALOS Apr 23, 2017 23:36
[2017-04-24] VITALS (7 sets, daily range): BP systolic 102–135; BP diastolic 62–81
[2017-04-24] MEDS: Levalbuterol Inh UD 1.25mg/0.5ml HHN SCH ×4 (01:31→19:13)
[2017-04-24] MEDS: Ipratropium 0.02% Inh Soln 2.5ml UD HHN SCH ×4 (01:31→19:13)
[2017-04-24] MEDS: sitaGLIPtin 25mg tab ORAL SCH (06:05)
[2017-04-24 07:08] LABS: ANION GAP 13 mmol/L (5-15); CARBON DIOXIDE 24 MMOL/L (21-32); CHLORIDE 100 MMOL/L (98-107); CREATININE 2.7 MG/DL (0.55-1.30); POTASSIUM 4.9 MMOL/L (3.5-5.1); SODIUM 136 MMOL/L (136-145)
[2017-04-24] MEDS ORDERED: Levalbuterol Inh UD 1.25mg/0.5ml HHN SCH (09:00)
[2017-04-24] MEDS ORDERED: Eliquis 2.5mg tablet ORAL SCH (09:00)
[2017-04-24] MEDS ORDERED: Solu-MEDROL 40mg Inj IVP SCH (09:00)
--- NOTE | 2017-04-24 09:44 | Infectious Diseases Prog Note ---
Assessment/Plan Assessment/Plan A; R knee prosthesis infection Atrial fibrillation DM Obesity Degenerative joint disease Diarrhea, resolved Hematuria Fatty liver P: Continue Cefepime, Rifampin was discontinued because of Bilirubin elevation will f/u UC Subjective ROS Limited/Unobtainable: Yes Gastrointestinal/Abdominal: Reports: nausea, vomiting Allergies: Coded Allergies: MILK CONTAINING PRODUCTS (Verified Allergy, Unknown, 04/20/17) Lactose Intolerant TRAMADOL (Verified Allergy, Unknown, 04/19/17) Objective Vital Signs Last 24 Hour Vital Signs Date Time Temp Pulse Resp B/P (MAP) Pulse Ox O2 Delivery O2 Flow Rate FiO2 04/24/17 07:22 101 18 99 Nasal Cannula 2.0 28 04/24/17 07:08 98 Nasal Cannula 2.0 28 04/24/17 07:08 Nasal Cannula 2.0 28 04/24/17 07:06 100 16 98 Nasal Cannula 2.0 28 04/24/17 04:00 96.1 67 20 113/68 98 Nasal Cannula 04/24/17 03:44 94 04/24/17 01:42 104 18 99 Nasal Cannula 2.0 04/24/17 01:31 100 16 98 Nasal Cannula 2.0 28 04/24/17 00:00 97.0 103 20 126/76 100 Nasal Cannula 04/23/17 23:19 102 04/23/17 23:16 80 122/95 04/23/17 21:35 75 18 99 Nasal Cannula 2.0 28 04/23/17 21:32 75 18 99 Nasal Cannula 2.0 28 04/23/17 20:00 96.4 100 19 122/95 100 04/23/17 19:44 102 18 98 Nasal Cannula 2.0 04/23/17 19:32 98 Nasal Cannula 2.0 28 04/23/17 19:32 Nasal Cannula 2.0 28 04/23/17 19:32 103 16 98 Nasal Cannula 2.0 28 04/23/17 15:37 98.4 92 20 116/86 100 04/23/17 12:00 97.2 100 20 117/77 100 Nasal Cannula 2.0 Height (Feet): 5 Height (Inches): 3.00 Weight (Pounds): 192 General Appearance: no acute distress HEENT: mucous membranes moist Respiratory/Chest: lungs clear Cardiovascular: normal rate Abdomen: soft, non tender Extremities: other - mild/trace nader a of legs Neurologic/Psychiatric: other - sleeping Laboratory Tests Test 04/24/17 05:20 Sodium Level 136 MMOL/L (136-145) Potassium Level 4.9 MMOL/L (3.5-5.1) Chloride Level 100 MMOL/L (98-107) Carbon Dioxide Level 24 MMOL/L (21-32) Anion Gap 13 mmol/L (5-15) Blood Urea Nitrogen 71 mg/dL (7-18) H Creatinine 2.7 MG/DL (0.55-1.30) H Estimat Glomerular Filtration Rate mL/min (>60) Glucose Level 123 MG/DL (74-106) H Calcium Level 9.0 MG/DL (8.5-10.1) Current Medications Medications (Trade) Dose Ordered Sig/Edda Route PRN Reason Start Time Stop Time Status Last Admin Dose Admin Acetaminophen/ Hydrocodone Bitart ([place] 5/325) 1 tab Q6H PRN ORAL For Pain Scale 4-10 04/23/17 21:30 04/30/17 21:29 Albuterol Sulfate (Proventil MDI) 1 puff Q4H PRN INH Shortness of Breath 04/23/17 21:30 05/23/17 21:29 Apixaban (Eliquis) 5 mg BID ORAL 04/24/17 09:00 05/21/17 08:59 Atenolol (Tenormin) 50 mg Q12HR ORAL 04/23/17 22:00 05/20/17 21:59 04/23/17 23:16 Beclomethasone Dipropionate (Qvar 40 Inhaler) 1 puff BIDRT INH 04/23/17 22:00 05/21/17 12:59 04/23/17 21:32 Bisacodyl (Dulcolax) 10 mg DAILYPRN PRN RECTAL Constipation Unrelieved by Alt 04/23/17 21:30 05/23/17 21:29 Cefepime HCl 1 gm/ Dextrose 55 ml @ 110 mls/hr Q24H IVPB 04/24/17 11:00 04/30/17 10:59 Diphenoxylate HCl/ Atropine (Lomotil) 1 mg BIDPRN PRN ORAL Diarrhea 04/23/17 21:30 05/23/17 21:29 Docusate Sodium (Colace) 100 mg TWICE A DAY ORAL 04/24/17 09:00 05/20/17 17:59 Furosemide (Lasix) 40 mg DAILY ORAL 04/24/17 09:00 05/21/17 08:59 Insulin Detemir (Levemir) 8 units BEDTIME SUBQ 04/23/17 22:00 05/20/17 21:59 04/23/17 23:16 Insulin Detemir (Levemir) 16 units DAILY SUBQ 04/24/17 09:00 05/21/17 08:59 Ipratropium [place] (Atrovent) 500 mcg Q6HRT HHN 04/24/17 01:00 04/28/17 18:59 04/24/17 07:06 Iron Sucrose 100 mg/Sodium Chloride 60 ml @ 240 mls/hr BEDTIME IV 04/23/17 22:00 04/27/17 21:01 04/23/17 23:15 Lactobacillus Acidophilus (Culturelle) 1 tab TWICE A DAY ORAL 04/24/17 09:00 05/20/17 17:59 Levalbuterol HCl (Xopenex) 0.63 mg Q6HR HHN 04/24/17 00:00 04/28/17 19:59 04/24/17 07:06 Magnesium Hydroxide (Mom) 30 ml DAILYPRN PRN ORAL Constipation 1st Line Agent 04/23/17 21:30 05/23/17 21:29 Methylprednisolone Sodium Succinate (Solu-MEDROL) 40 mg DAILY IVP 04/24/17 09:00 05/20/17 21:59 Metoclopramide HCl (Reglan) 5 mg TID ORAL 04/24/17 09:00 05/21/17 12:59 Multivitamins (Multivitamins) 1 tab DAILY ORAL 04/24/17 09:00 05/21/17 08:59 Ondansetron HCl (Zofran) 4 mg THREE TIMES A DAY ORAL 04/24/17 09:00 05/20/17 12:59 Sennosides (Senokot) 17.2 mg QHS ORAL 04/23/17 22:00 05/20/17 21:59 04/23/17 23:17 Sitagliptin Phosphate (Januvia) 25 mg ACBREAKFAST ORAL 04/24/17 06:30 05/21/17 06:29 04/24/17 06:05 TIMOTHY BHATIA Apr 24, 2017 09:44
[2017-04-24] MEDS: Furosemide 40mg tab ORAL SCH (09:48)
[2017-04-24] MEDS: Lactobacillus-GG tablet ORAL SCH ×2 (09:48→17:40)
[2017-04-24] MEDS: Qvar 40mcg Inhaler 6.8 gm INH SCH ×2 (09:51→21:36)
[2017-04-24] MEDS: Docusate 100mg cap ORAL SCH ×2 (09:57→17:40)
[2017-04-24] MEDS: Solu-MEDROL 40mg Inj IVP SCH (10:06)
[2017-04-24] MEDS: Levemir Flexpen SUBQ SCH ×2 (10:19→22:21)
[2017-04-24] MEDS: Cefepime HCl 1 GM in D5W 55 ML IVPB SCH (10:41)
--- NOTE | 2017-04-24 10:54 | GI Progress Note ---
Assessment/Plan Problems: (1) DM (diabetes mellitus) ICD Codes: E11.9 - Type 2 diabetes mellitus without complications SNOMED: 97483138 (2) Gastroparesis ICD Codes: K31.84 - Gastroparesis SNOMED: 255824480 (3) Nausea & vomiting ICD Codes: R11.2 - Nausea with vomiting, unspecified SNOMED: 35958126 (4) Hyperbilirubinemia ICD Codes: E80.6 - Other disorders of bilirubin metabolism SNOMED: 01196404 (5) Anemia ICD Codes: D64.9 - Anemia, unspecified SNOMED: 567172935 Status: stable Status Narrative Discussed with Dr. Ordoñez. Assessment/Plan CT AP reviewed >> see full report - R side pleural effusion - diverticulosis Abdominal U/S reviewed >> see full report. -common bile duct measures 8 mm in diameter. - Surgically absent gallbladder. defer GI procedures given elevated troponin levels >> symptomatic treatment at this time ADA diet, push PO OB stool r/o GI bleed monitor H&H, prn transfusions bowel regime >> colace + senokot low dose reglan ppi fu labs, LFTs pt on Eliquis The patient was seen and examined at bedside and all new and available data was reviewed in the patients chart. I agree with the above findings, impression and plan. (Patient seen earlier today. Signature stamp does not reflect patient encounter time.). - Malissa Ordoñez MD Subjective Gastrointestinal/Abdominal: Reports: no symptoms Subjective poor appetite Objective Last 24 Hour Vital Signs Date Time Temp Pulse Resp B/P (MAP) Pulse Ox O2 Delivery O2 Flow Rate FiO2 04/24/17 09:53 79 18 99 Nasal Cannula 2.0 04/24/17 09:53 76 18 99 Nasal Cannula 2.0 04/24/17 07:22 101 18 99 Nasal Cannula 2.0 04/24/17 07:08 98 Nasal Cannula 2.0 04/24/17 07:08 Nasal Cannula 2.0 04/24/17 07:06 100 16 98 Nasal Cannula 2.0 04/24/17 04:00 96.1 67 20 113/68 98 Nasal Cannula 04/24/17 03:44 94 04/24/17 01:42 104 18 99 Nasal Cannula 2.0 04/24/17 01:31 100 16 98 Nasal Cannula 2.0 28 04/24/17 00:00 97.0 103 20 126/76 100 Nasal Cannula 04/23/17 23:19 102 04/23/17 23:16 80 122/95 04/23/17 21:35 75 18 99 Nasal Cannula 2.0 28 04/23/17 21:32 75 18 99 Nasal Cannula 2.0 28 04/23/17 20:00 96.4 100 19 122/95 100 04/23/17 19:44 102 18 98 Nasal Cannula 2.0 28 04/23/17 19:32 98 Nasal Cannula 2.0 28 04/23/17 19:32 Nasal Cannula 2.0 28 04/23/17 19:32 103 16 98 Nasal Cannula 2.0 28 04/23/17 15:37 98.4 92 20 116/86 100 04/23/17 12:00 97.2 100 20 117/77 100 Nasal Cannula 2.0 Intake and Output 04/23/17 04/24/17 19:00 07:00 Intake Total 360 ml Output Total 400 ml 300 ml Balance -400 ml 60 ml Intake Oral 300 ml IV Total 60 ml Output Urine Total 400 ml 300 ml Laboratory Tests Test 04/24/17 05:20 Sodium Level 136 MMOL/L (136-145) Potassium Level 4.9 MMOL/L (3.5-5.1) Chloride Level 100 MMOL/L (98-107) Carbon Dioxide Level 24 MMOL/L (21-32) Anion Gap 13 mmol/L (5-15) Blood Urea Nitrogen 71 mg/dL (7-18) H Creatinine 2.7 MG/DL (0.55-1.30) H Estimat Glomerular Filtration Rate mL/min (>60) Glucose Level 123 MG/DL (74-106) H Calcium Level 9.0 MG/DL (8.5-10.1) Height (Feet): 5 Height (Inches): 3.00 Weight (Pounds): 192 General Appearance: WD/WN, no apparent distress, alert, overweight Cardiovascular: normal rate Respiratory/Chest: normal breath sounds, no respiratory distress Abdominal Exam: normal bowel sounds, non tender, soft Extremities: normal range of motion, non-tender Justina Rice N.PArmand Apr 24, 2017 10:54 MÓNICA ORDOÑEZ Apr 25, 2017 09:16
--- NOTE | 2017-04-24 12:43 | Nephrology Progress Note ---
Assessment/Plan Problem List: (1) CKD (chronic kidney disease) (2) CHF exacerbation (3) DM (diabetes mellitus) (4) HTN (hypertension) (5) ARF (acute renal failure) Assessment: secondary to diuretics ? cardiorenal ? ATN ? (6) Secondary hyperparathyroidism of renal origin Assessment Renal function stable Plan continue with diuretics Add Zemplar follow BMP Subjective Subjective more SOB today Objective Objective Last 24 Hour Vital Signs Date Time Temp Pulse Resp B/P (MAP) Pulse Ox O2 Delivery O2 Flow Rate FiO2 04/24/17 09:53 79 18 99 Nasal Cannula 2.0 28 04/24/17 09:53 76 18 99 Nasal Cannula 2.0 28 04/24/17 07:22 101 18 99 Nasal Cannula 2.0 28 04/24/17 07:08 98 Nasal Cannula 2.0 28 04/24/17 07:08 Nasal Cannula 2.0 28 04/24/17 07:06 100 16 98 Nasal Cannula 2.0 28 04/24/17 04:00 96.1 67 20 113/68 98 Nasal Cannula 04/24/17 03:44 94 04/24/17 01:42 104 18 99 Nasal Cannula 2.0 28 04/24/17 01:31 100 16 98 Nasal Cannula 2.0 28 04/24/17 00:00 97.0 103 20 126/76 100 Nasal Cannula 04/23/17 23:19 102 04/23/17 23:16 80 122/95 04/23/17 21:35 75 18 99 Nasal Cannula 2.0 28 04/23/17 21:32 75 18 99 Nasal Cannula 2.0 04/23/17 20:00 96.4 100 19 122/95 100 04/23/17 19:44 102 18 98 Nasal Cannula 2.0 28 04/23/17 19:32 98 Nasal Cannula 2.0 28 04/23/17 19:32 Nasal Cannula 2.0 28 04/23/17 19:32 103 16 98 Nasal Cannula 2.0 04/23/17 15:37 98.4 92 20 116/86 100 Intake and Output 04/23/17 04/24/17 19:00 07:00 Intake Total 360 ml Output Total 400 ml 300 ml Balance -400 ml 60 ml Intake Oral 300 ml IV Total 60 ml Output Urine Total 400 ml 300 ml Laboratory Tests 04/24/17 05:20: Sodium Level 136, Potassium Level 4.9, Chloride Level 100, Carbon Dioxide Level 24, Anion Gap 13, Blood Urea Nitrogen 71H, Creatinine 2.7H, Estimat Glomerular Filtration Rate , Glucose Level 123H, Calcium Level 9.0 Height (Feet): 5 Height (Inches): 3.00 Weight (Pounds): 192 Cardiovascular: tachycardia Respiratory/Chest: expiratory wheezing Extremities: trace edema VLADIMIR BHATIA Apr 24, 2017 12:43
[2017-04-24] MEDS: Paricalcitol 1mcg cap ORAL SCH (14:43)
[2017-04-24] MEDS: Eliquis 2.5mg tablet ORAL SCH (17:40)
--- NOTE | 2017-04-24 20:50 | General Progress Note ---
Assessment/Plan Assessment/Plan chf diastlic better asthamtic acute air way reactive disease given sterodi xoponex adn atrovent much imprioved aib rvr acute kidney injury a cute tubular necrosis aneimia diabetes gfastroparesis better doingbetter doing better taper steroid dc planning to cv terrcaae tommorrow. Subjective Date patient seen: Apr 24, 2017 Time patient seen: 20:48 Constitutional: Reports: no symptoms HEENT: Reports: no symptoms Respiratory: Reports: other - breathingm uch better Allergies: Coded Allergies: MILK CONTAINING PRODUCTS (Verified Allergy, Unknown, 04/20/17) Lactose Intolerant TRAMADOL (Verified Allergy, Unknown, 04/19/17) Subjective short of breath and wheezing Objective Last 24 Hour Vital Signs Date Time Temp Pulse Resp B/P (MAP) Pulse Ox O2 Delivery O2 Flow Rate FiO2 04/24/17 19:53 96.5 105 18 112/71 99 Nasal Cannula 04/24/17 19:23 108 18 99 Nasal Cannula 2.0 28 04/24/17 19:13 98 Nasal Cannula 2.0 28 04/24/17 19:13 Nasal Cannula 2.0 28 04/24/17 19:13 104 18 99 Nasal Cannula 2.0 28 04/24/17 16:00 95 04/24/17 15:57 97.2 74 18 104/76 96 Nasal Cannula 2.0 04/24/17 13:16 105 18 99 Nasal Cannula 2.0 28 04/24/17 13:06 103 16 99 Nasal Cannula 2.0 28 04/24/17 12:00 97.0 103 20 105/71 97 Nasal Cannula 2.0 04/24/17 12:00 96 04/24/17 09:53 79 18 99 Nasal Cannula 2.0 28 04/24/17 09:53 76 18 99 Nasal Cannula 2.0 28 04/24/17 08:00 97.0 95 22 102/76 97 Nasal Cannula 2.0 04/24/17 08:00 94 04/24/17 07:22 101 18 99 Nasal Cannula 2.0 28 04/24/17 07:08 98 Nasal Cannula 2.0 28 04/24/17 07:08 Nasal Cannula 2.0 28 04/24/17 07:06 100 16 98 Nasal Cannula 2.0 28 04/24/17 04:00 96.1 67 20 113/68 98 Nasal Cannula 04/24/17 03:44 94 04/24/17 01:42 104 18 99 Nasal Cannula 2.0 28 04/24/17 01:31 100 16 98 Nasal Cannula 2.0 28 04/24/17 00:00 97.0 103 20 126/76 100 Nasal Cannula 04/23/17 23:19 102 04/23/17 23:16 80 122/95 04/23/17 21:35 75 18 99 Nasal Cannula 2.0 28 04/23/17 21:32 75 18 99 Nasal Cannula 2.0 28 Intake and Output 04/23/17 04/24/17 19:00 07:00 Intake Total 360 ml Output Total 400 ml 300 ml Balance -400 ml 60 ml Intake Oral 300 ml IV Total 60 ml Output Urine Total 400 ml 300 ml Laboratory Tests 04/24/17 05:20: Sodium Level 136, Potassium Level 4.9, Chloride Level 100, Carbon Dioxide Level 24, Anion Gap 13, Blood Urea Nitrogen 71H, Creatinine 2.7H, Estimat Glomerular Filtration Rate , Glucose Level 123H, Calcium Level 9.0 Height (Feet): 5 Height (Inches): 3.00 Weight (Pounds): 192 General Appearance: WD/WN Respiratory/Chest: other - exp wheez other yeboah clear Abdomen: normal bowel sounds HORACE FONTAINE Apr 24, 2017 20:50
[2017-04-24] MEDS: Sennosides 8.6mg ORAL SCH (21:00)
[2017-04-24] MEDS: Iron Sucrose 100 MG in NS 55 ML IV SCH (21:35)
[2017-04-25] MEDS: Levalbuterol Inh UD 1.25mg/0.5ml HHN SCH ×3 (01:25→12:00)
[2017-04-25] MEDS: Ipratropium 0.02% Inh Soln 2.5ml UD HHN SCH ×3 (01:25→13:00)
[2017-04-25 03:46] VITALS: BP 107/72
[2017-04-25] MEDS: sitaGLIPtin 25mg tab ORAL SCH (06:40)
[2017-04-25] MEDS: Qvar 40mcg Inhaler 6.8 gm INH SCH (07:13)
[2017-04-25 08:00] VITALS: BP 137/56
[2017-04-25 08:41] LABS: ALANINE AMINOTRANSFERASE 71 U/L (12-78); ALBUMIN/GLOBULIN RATIO 0.7 (1.0-2.7); ANION GAP 8 mmol/L (5-15); ASPARTATE AMINO TRANSFERASE 188 U/L (15-37); CALCIUM 8.1 MG/DL (8.5-10.1); CARBON DIOXIDE 28 MMOL/L (21-32); CHLORIDE 100 MMOL/L (98-107); CREATININE 2.4 MG/DL (0.55-1.30); POTASSIUM 4.4 MMOL/L (3.5-5.1); SODIUM 135 MMOL/L (136-145); TOTAL PROTEIN 7.3 G/DL (6.4-8.2)
[2017-04-25 08:54] LABS: BILIRUBIN,DIRECT 0.8 MG/DL (0.0-0.3)
[2017-04-25] MEDS: Docusate 100mg cap ORAL SCH (09:25)
[2017-04-25] MEDS: Eliquis 2.5mg tablet ORAL SCH (09:25)
[2017-04-25] MEDS: Furosemide 40mg tab ORAL SCH (09:25)
[2017-04-25] MEDS: Lactobacillus-GG tablet ORAL SCH (09:25)
[2017-04-25] MEDS: Solu-MEDROL 40mg Inj IVP SCH (09:26)
[2017-04-25] MEDS: Paricalcitol 1mcg cap ORAL SCH (09:26)
[2017-04-25] MEDS: Levemir Flexpen SUBQ SCH (09:37)
[2017-04-25] MEDS ORDERED: Lomotil 2.5mg tab ORAL PRN (10:45)
[2017-04-25] MEDS: Cefepime HCl 1 GM in D5W 55 ML IVPB SCH (11:29)
--- NOTE | 2017-04-25 11:47 | Nephrology Progress Note ---
Assessment/Plan Problem List: (1) CKD (chronic kidney disease) (2) CHF exacerbation (3) DM (diabetes mellitus) (4) HTN (hypertension) (5) ARF (acute renal failure) Assessment: secondary to diuretics ? cardiorenal ? ATN ? (6) Secondary hyperparathyroidism of renal origin Assessment ARF better Plan continue with diuretics cont Zemplar follow BMP Subjective Subjective all noted Objective Objective Last 24 Hour Vital Signs Date Time Temp Pulse Resp B/P (MAP) Pulse Ox O2 Delivery O2 Flow Rate FiO2 04/25/17 09:26 97 137/56 04/25/17 08:00 103 04/25/17 08:00 96.8 97 19 137/56 94 Nasal Cannula 04/25/17 07:16 105 20 100 Nasal Cannula 2.0 28 04/25/17 07:16 104 20 100 Nasal Cannula 04/25/17 07:15 28 04/25/17 07:14 Nasal Cannula 2.0 28 04/25/17 07:14 104 20 100 Nasal Cannula 2.0 28 04/25/17 07:14 105 20 100 Nasal Cannula 2.0 04/25/17 07:13 100 Nasal Cannula 2.0 28 04/25/17 04:00 103 04/25/17 03:46 98.1 103 20 107/72 91 Nasal Cannula 04/25/17 01:35 88 18 98 Nasal Cannula 2.0 04/25/17 01:25 103 16 98 Nasal Cannula 2.0 04/25/17 00:00 104 04/24/17 23:58 97.0 91 20 135/81 95 Room Air 04/24/17 21:38 105 112/71 04/24/17 21:37 105 22 96 Nasal Cannula 2.0 04/24/17 21:36 103 22 97 Nasal Cannula 2.0 04/24/17 20:00 105 04/24/17 19:53 96.5 105 18 112/71 99 Nasal Cannula 04/24/17 19:23 108 18 99 Nasal Cannula 2.0 04/24/17 19:13 98 Nasal Cannula 2.0 28 04/24/17 19:13 Nasal Cannula 2.0 28 04/24/17 19:13 104 18 99 Nasal Cannula 2.0 04/24/17 16:00 95 04/24/17 15:57 97.2 74 18 104/76 96 Nasal Cannula 2.0 04/24/17 13:16 105 18 99 Nasal Cannula 2.0 28 04/24/17 13:06 103 16 99 Nasal Cannula 2.0 28 04/24/17 12:00 97.0 103 20 105/71 97 Nasal Cannula 2.0 04/24/17 12:00 96 Intake and Output 04/24/17 04/25/17 19:00 07:00 Intake Total 720 ml Output Total 600 ml 1050 ml Balance -600 ml -330 ml Intake Oral 720 ml Output Urine Total 600 ml 1050 ml Laboratory Tests 04/25/17 07:20: Sodium Level 135L, Potassium Level 4.4, Chloride Level 100, Carbon Dioxide Level 28, Anion Gap 8, Blood Urea Nitrogen 76H, Creatinine 2.4H, Estimat Glomerular Filtration Rate , Glucose Level 131H, Calcium Level 8.1L, Total Bilirubin 1.2H, Direct Bilirubin 0.8H, Aspartate Amino Transf (AST/SGOT) 188H, Alanine Aminotransferase (ALT/SGPT) 71, Alkaline Phosphatase 123H, Total Protein 7.3, Albumin 2.9L, Globulin 4.4, Albumin/Globulin Ratio 0.7L Height (Feet): 5 Height (Inches): 3.00 Weight (Pounds): 192 Cardiovascular: normal rate Respiratory/Chest: lungs clear Extremities: trace edema VLADIMIR BHATIA Apr 25, 2017 11:47
[2017-04-25 12:00] VITALS: BP 127/84
--- NOTE | 2017-04-25 13:23 | GI Progress Note ---
Assessment/Plan Problems: (1) DM (diabetes mellitus) ICD Codes: E11.9 - Type 2 diabetes mellitus without complications SNOMED: 24397391 (2) Gastroparesis ICD Codes: K31.84 - Gastroparesis SNOMED: 789888911 (3) Nausea & vomiting ICD Codes: R11.2 - Nausea with vomiting, unspecified SNOMED: 19631755 (4) Hyperbilirubinemia ICD Codes: E80.6 - Other disorders of bilirubin metabolism SNOMED: 56150207 (5) Anemia ICD Codes: D64.9 - Anemia, unspecified SNOMED: 730534575 Status: stable Status Narrative Discussed with Dr. Ordoñez. Assessment/Plan CT AP reviewed >> see full report - R side pleural effusion - diverticulosis Abdominal U/S reviewed >> see full report. -common bile duct measures 8 mm in diameter. - Surgically absent gallbladder. defer GI procedures given elevated troponin levels >> symptomatic treatment at this time ADA diet, push PO OB stool r/o GI bleed monitor H&H, prn transfusions bowel regime >> colace + senokot low dose reglan ppi fu labs, LFTs pt on Eliquis The patient was seen and examined at bedside and all new and available data was reviewed in the patients chart. I agree with the above findings, impression and plan. (Patient seen earlier today. Signature stamp does not reflect patient encounter time.). - Malissa Ordoñez MD Subjective Gastrointestinal/Abdominal: Reports: no symptoms Subjective poor appetite Objective Last 24 Hour Vital Signs Date Time Temp Pulse Resp B/P (MAP) Pulse Ox O2 Delivery O2 Flow Rate FiO2 04/25/17 12:00 105 04/25/17 12:00 97.8 93 19 127/84 100 Nasal Cannula 04/25/17 09:26 97 137/56 04/25/17 08:00 103 04/25/17 08:00 96.8 97 19 137/56 94 Nasal Cannula 04/25/17 07:16 105 20 100 Nasal Cannula 2.0 04/25/17 07:16 104 20 100 Nasal Cannula 28 04/25/17 07:15 28 04/25/17 07:14 Nasal Cannula 2.0 28 04/25/17 07:14 104 20 100 Nasal Cannula 2.0 04/25/17 07:14 105 20 100 Nasal Cannula 2.0 04/25/17 07:13 100 Nasal Cannula 2.0 28 04/25/17 04:00 103 04/25/17 03:46 98.1 103 20 107/72 91 Nasal Cannula 04/25/17 01:35 88 18 98 Nasal Cannula 2.0 28 04/25/17 01:25 103 16 98 Nasal Cannula 2.0 28 04/25/17 00:00 104 04/24/17 23:58 97.0 91 20 135/81 95 Room Air 04/24/17 21:38 105 112/71 04/24/17 21:37 105 22 96 Nasal Cannula 2.0 28 04/24/17 21:36 103 22 97 Nasal Cannula 2.0 28 04/24/17 20:00 105 04/24/17 19:53 96.5 105 18 112/71 99 Nasal Cannula 04/24/17 19:23 108 18 99 Nasal Cannula 2.0 28 04/24/17 19:13 98 Nasal Cannula 2.0 28 04/24/17 19:13 Nasal Cannula 2.0 28 04/24/17 19:13 104 18 99 Nasal Cannula 2.0 28 04/24/17 16:00 95 04/24/17 15:57 97.2 74 18 104/76 96 Nasal Cannula 2.0 Intake and Output 04/24/17 04/25/17 19:00 07:00 Intake Total 720 ml Output Total 600 ml 1050 ml Balance -600 ml -330 ml Intake Oral 720 ml Output Urine Total 600 ml 1050 ml Laboratory Tests Test 04/25/17 07:20 Sodium Level 135 MMOL/L (136-145) L Potassium Level 4.4 MMOL/L (3.5-5.1) Chloride Level 100 MMOL/L (98-107) Carbon Dioxide Level 28 MMOL/L (21-32) Anion Gap 8 mmol/L (5-15) Blood Urea Nitrogen 76 mg/dL (7-18) H Creatinine 2.4 MG/DL (0.55-1.30) H Estimat Glomerular Filtration Rate mL/min (>60) Glucose Level 131 MG/DL (74-106) H Calcium Level 8.1 MG/DL (8.5-10.1) L Total Bilirubin 1.2 MG/DL (0.2-1.0) H Direct Bilirubin 0.8 MG/DL (0.0-0.3) H Aspartate Amino Transf (AST/SGOT) 188 U/L (15-37) H Alanine Aminotransferase (ALT/SGPT) 71 U/L (12-78) Alkaline Phosphatase 123 U/L (46-116) H Total Protein 7.3 G/DL (6.4-8.2) Albumin 2.9 G/DL (3.4-5.0) L Globulin 4.4 g/dL Albumin/Globulin Ratio 0.7 (1.0-2.7) L Height (Feet): 5 Height (Inches): 3.00 Weight (Pounds): 192 General Appearance: WD/WN, no apparent distress, alert, overweight Cardiovascular: normal rate Respiratory/Chest: normal breath sounds, no respiratory distress Abdominal Exam: normal bowel sounds, non tender, soft Extremities: normal range of motion, non-tender Justina Rice N.Lucita Apr 25, 2017 13:23 MÓNICA ORDOÑEZ Apr 29, 2017 08:12
[2017-04-25] MEDS ORDERED: NS 275ml ONE (13:49)
[2017-04-25] MEDS ORDERED: Tubing IV Secondary IV ONE (13:49)
--- NOTE | 2017-04-25 19:27 | Discharge Summary ---
Discharge Summary Discharge Summary Discharge Summary DATE OF ADMISSION: DATE OF DISCHARGE:04/25/2017 REASON FOR HOSPITALIZATION: dictaed discharge summary HORACE FONTAINE Apr 25, 2017 19:27
--- NOTE | 2017-04-26 00:15 | Cardiology Report ---
APPROVED REPORT EXAM: Two-dimensional and M-mode echocardiogram with Doppler and color Doppler. INDICATION Atrial Fibrillation M-Mode DIMENSIONS IVSd1.3 (0.7-1.1cm)Left Atrium (MM)4.8 (1.6-4.0cm) LVDd5.0 (3.5-5.6cm)Aortic Root2.4 (2.0-3.7cm) PWd0.9 (0.7-1.1cm)Aortic Cusp Exc.0.7 (1.5-2.0cm) IVSs1.4 cm LVDs4.5 (2.5-4.0cm) PWs1.4 cm Four chamber dilated cardiomyopathy. Global left ventricular hypokinesia. Left ventricular ejection fraction estimated to be 20%. Ischemic cardiomyopathy cannot be excluded. No evidence of pericardial effusion Mild bi- atrial enlargement. Moderate right ventricular enlargement with reduced function. Focal aortic valve sclerosis with adequate cusp excursion. Thickened mitral valve leaflets with normal excursion. Mitral annulus and aortic root calcification. Pulmonic valve are not well visualized . Normal tricuspid valve structure. IVC at 2.1 cm with physiologic collapse. A color flow and spectral Doppler study was performed and revealed: Mild aortic regurgitation. moderate mitral regurgitation. Mitral inflow indicates restrictive pattern, implying severely elevated left atrial pressure (Grade III ). Modarate tricuspid regurgitation. Tricuspid systolic velocities suggests peak right ventricular systolic pressure of 61 mmHg. Mild Pulmonic regurgitation present.
--- NOTE | 2017-04-29 08:30 | Discharge Summary ---
DATE OF ADMISSION: 04/20/2017 DATE OF DISCHARGE: 04/25/2017 NOTE: POOR AUDIO QUALITY ADMISSION DIAGNOSES: 1. Acute renal failure, likely dehydration. 2. Atrial fibrillation, rapid ventricular rate. 3. Acute congestive heart failure, superimposed on chronic congestive heart failure. 4. Hypertension. 5. Diabetes. 6. Morbid obesity. DISCHARGE DIAGNOSES: 1. Acute renal failure. 2. Dehydration. 3. Prerenal azotemia. 4. Acute tubular necrosis. 5. Atrial fibrillation. 6. Rapid ventricular rate, controlled. 7. Acute congestive heart failure. 8. Chronic congestive heart failure, diastolic. 9. Hypertension. 10. Diabetes. 11. Morbid obesity. 12. Pyuria, without evidence of acute infection. 13. History of septic knee, status post antibiotic treatment, treatment until July. 14. Diabetic gastroparesis. 15. Proteinuria. HISTORY AND HOSPITAL COURSE: The patient female, subsequently she had dehydration, she had acute renal failure with acute emesis. She was admitted to the hospital and was given IV fluids, but was noted to have worsening acute renal failure. Creatinine 2.2. was seen, also noted to have proteinuria. She was seen by geriatric personal care aide and was given IV fluids. Gentle IV hydration, did well diabetic gastropathy and has recurrent emesis, mostly likely was the cause of her dehydration, subsequently acute renal failure and subsequently congestive heart failure . She taking the medication. She was improved and she was discharged home. While in the hospital, she had acute exacerbation of asthma. asthma. She was started on Xopenex, Atrovent as well as Solu-Medrol. She on two more days of prednisone p.o. at the [facility]. Bryan Mathew M.D. DR: Dionicio JOB#: [id number] CC:
--- NOTE | 2017-05-01 00:10 | Diagnostic Imaging Report ---
APPROVED REPORT CPT Code: 87749 Present Symptoms Shortness of breath BILATERAL: Imaging reveals a patent deep venous system bilaterally. There is no evidence of thrombus within the femoral, popliteal or tibial segments. The greater saphenous veins are also within normal limits. Doppler indicates normal spontaneous flow within these segments.
== END 2017-04-25 13:50 | DRG 682 ==
LOC: EDBD 22:42 → EMR 22:50 → 2E 04-20 00:41 → EDBEDREQ 04-20 02:46 → 2E 04-20 05:51 → ENRESERV 04-20 07:30 → 4E 04-23 12:40 → 2E 04-23 22:02
DX: N17.0 Acute kidney failure with tubular necrosis (principal); I50.33 Acute on chronic diastolic (congestive) heart failure; J90 Pleural effusion, not elsewhere classified; M00.9 Pyogenic arthritis, unspecified; E11.22 Type 2 diabetes mellitus with diabetic chronic kidney disease; I42.0 Dilated cardiomyopathy; I48.2 Chronic atrial fibrillation; E86.0 Dehydration; J44.9 Chronic obstructive pulmonary disease, unspecified; J45.901 Unspecified asthma with (acute) exacerbation; I10 Essential (primary) hypertension; N39.0 Urinary tract infection, site not specified; K31.84 Gastroparesis; E66.01 Morbid (severe) obesity due to excess calories; E11.43 Type 2 diabetes mellitus with diabetic autonomic (poly)neuropathy; G47.33 Obstructive sleep apnea (adult) (pediatric); Z68.34 Body mass index [BMI] 34.0-34.9, adult; R80.9 Proteinuria, unspecified; T84.53XD Infection and inflammatory reaction due to internal right knee prosthesis, subsequent encounter; R19.7 Diarrhea, unspecified; Z96.643 Presence of artificial hip joint, bilateral; I12.9 Hypertensive chronic kidney disease with stage 1 through stage 4 chronic kidney disease, or unspecified chronic kidney disease; N18.9 Chronic kidney disease, unspecified; D64.9 Anemia, unspecified; K57.90 Diverticulosis of intestine, part unspecified, without perforation or abscess without bleeding; N25.81 Secondary hyperparathyroidism of renal origin; Z79.01 Long term (current) use of anticoagulants; Z79.84 Long term (current) use of oral hypoglycemic drugs
CPT/HCPCS: 36415; 71010; 74176; 76700; 76775; 80048; 80053; 81003; 82248; 82378; 82550; 82553; 82962; 83036; 83540; 83550; 83880; 83970; 84100; 84260; 84300; 84443; 84484; 85007; 85025; 85610; 85730; 87081; 87086; 87181; 93005; 93306; 93970; 94640; 94760; 99291; J7620; S5561